=== PATIENT | female | born 1955 | race Caucasian/White ===

== ENCOUNTER → 2017-04-19 | Outpatient (CLI) | payer BC ==
[2017-03-29 14:41] VITALS: BP 133/61
--- NOTE | 2017-04-19 11:06 | RAD ---
Examination: Lumbar spine, five views History: Back pain Findings: Normal appearance of vertebrae, disc spaces, sacroiliac joints. Alignment of segments is an atomic. No bone destruction or fracture is seen. Impression: No acute or significant lumbar spine abnormality identified. Reported By:
== END ==
LOC: RAD 10:39
PROVIDERS: ATTEND Nurse Practitioner Family
DX: M54.89 Other dorsalgia (principal)
CPT/HCPCS: 72110

== ENCOUNTER 2017-05-19 17:05 | Emergency (ER) | payer BC ==
[2017-05-19 17:13] VITALS: BMI 33.9
--- NOTE | 2017-05-19 19:53 | DR.GENAD ---
HPI - PCP Primary Care Physician: hector - Complaint/Symptoms Chief Complaint Doctors Comments: Patient denies vomiting or diarrhea. Denies fever. Chief Complaint:: pt stated she has been coughing and has been short of breath for about a week. - Source History Provided: Patient - Mode of Arrival Mode of Arrival: Ambulatory - Timing Onset of Chief Complaint: 05/12/17 PMH - PMH Past Medical History: Yes Past Medical History: Hypertension, Hypothyroidism Past Surgical History: Yes Surgical History: Ortho Surgery, Thyroidectomy - Family History History of Family Medical Conditions: Yes Family Medical History: Coronary Artery Disease - Social History Does patient currently use any type of tobacco product: No Have you used tobacco products in the last 12 months: No Type of Tobacco Use: None Does any household member use tobacco: No Alcohol Use: None Do you use any recreational Drugs:: No Lives With: Family Lives Where: Home - infectious screening In the last 2 months have you had wt loss of >10#?: NO Have you had fever, night sweats or hemotysis?: No Have you traveled outside the country in the last 6 months?: No Isolation: Standard ROS - Review of Systems Eyes: No Symptoms Reported ENTM: No Symptoms Reported Respiratoy: No Symptoms Reported Cardiovascular: No Symptoms Reported Gastrointestinal/Abdominal: No Symptoms Reported Genitourinary: No Symptoms Reported Neurological: No Symptoms Reported Musculoskeletal: No Symptoms Reported Integumentary: No Symptoms Reported Hematologic/Lymphatic: No Symptoms Reported Endocrine: No Symptoms Reported Psychiatric: No Symptoms Reported All Other Systems: Reviewed and Negative PE - Vital Signs Vitals: Temperature 98.9 F Pulse Rate 89 Respiratory Rate 18 Blood Pressure [Right Arm] 122/60 Blood Pressure 130/80 O2 Sat by Pulse Oximetry 97 - General General Appearance: Alert, In No Apparent Distress - Head Head Exam: Normal Inspection, Atraumatic - Eyes Eye exam: Normal Appearance, PERRL, EOMI - ENT ENT Exam: Normal Exam External Ear Exam: Normal External Inspection TM/Canal Exam: Bilateral Normal Nose Exam: Normal Nose Exam Mouth Exam: Normal Inspection Throat Exam: Normal Inspection - Neck Neck Exam: Normal Inspection - Chest Chest Inspection: Normal Inspection, Symmetric Chest Wall Rise - Respiratory Respiratory Exam: Normal Lung Sounds Bilat Respiratory Exam: Bilateral Clear to Auscultation - Cardiovascular Cardiovascular Exam: Regular Rate, Normal Rhythm - Abdominal Exam Abdominal Exam: Normal Inspection, Normal Bowel Sounds Abdominal Tenderness: negative: RUQ, RLQ, LUQ, LLQ, Epigastrium, Suprapubic, Diffuse, Mild, Moderate, Severe, Other - Extremities Extremities Exam: Normal Inspection, Full ROM - Back Back Exam: Normal Inspection, Full ROM - Neurologic Neurological Exam: Alert, Oriented X3, CN II-XII Intact - Psychiatric Psychiatric Exam: Normal Affect, Normal Mood - Skin Skin Exam: Warm, Dry, Intact ROR - Labs Reviewed Laboratory: Influenza Type A (PCR) Negative (NEGATIVE) 05/19/17 19:11 Influenza Type B (PCR) Negative (NEGATIVE) 05/19/17 19:11 Streptococcus Screen Negative (NEGATIVE) 05/19/17 19:11 - Diagnosis Discharge Problem: Upper respiratory infection Qualifiers: URI type: unspecified viral URI Qualified Code(s): J06.9 - Acute upper respiratory infection, unspecified - Discharge Plan Condition: Stable - Follow ups/Referrals Follow ups/Referrals: AMANDA GUERRERO [Primary Care Provider] - 3 days - Instructions
[2017-05-19] MEDS ORDERED: BENADRYL ELIXIR 12.5 MG/5 ML PO ONE (19:54)
[2017-05-19] MEDS ORDERED: TUSSIONEX PENNKINETIC SUSP PO ONE (19:56)
[2017-05-19] MEDS ORDERED: BENADRYL ELIXIR 12.5 MG/5 ML ONE (19:58)
[2017-05-19] MEDS ORDERED: TUSSIONEX PENNKINETIC SUSP ONE (20:16)
[2017-05-19 20:48] VITALS: BP 125/77
== END 2017-05-19 20:35 | disposition home or self-care (01) ==
LOC: ER 17:11
DX: J06.9 Acute upper respiratory infection, unspecified (principal)
CPT/HCPCS: 87070; 87502; 87880; 99282

== ENCOUNTER 2018-02-21 05:03 | Inpatient (IN) ==
[2018-02-21] MEDS ORDERED: DEMEROL INJ IVP ONE (05:38)
[2018-02-21] MEDS ORDERED: ZOFRAN INJ 4 MG VIAL IVP ONE ×2 (05:38→07:20)
--- NOTE | 2018-02-21 05:49 | ED.ABDFE ---
HPI Time Seen Time Seen by Provider: 02/21/18 05:35 PCP Primary Care Physician: CESAR HPI Comment HPI Comment: PAIN STARTED AFTER EATING PIZZA. SIMILAR PAIN OFF AND ON FOR SEVERAL MONTHS RELATED TO FOOD. HAD NAUSEA AND VOMITING WITH PAIN. IT IS A SHARP PAIN. Complaint Doctors Chief Complaint Comments: MID ABDOMINAL PAIN RADIATING TO EPIGATRIC AREA SINCE 18:00 PM YESTERDAY. Chief Complaint:: O/S 1800 ON [id number] WITH ABD PAIN THAT RADIATES TO EPIGASTRIC WITH NAUSEA/VOMITING AFTER EATING PIZZA. STATES, "FOR SOMETIME NOW , EVERY TIME I EAT, THIS HAPPENS AND IT USUALLY JUST GOES RIGHT THROUGH ME." Self Treatment fo Chief Complaint: NONE Reviewed Nurses Notes Review: Yes Source History Provided: Patient Mode of arrival Mode of Arrival: Ambulatory Timing Onset of Chief Complaint: 02/20/18 Came on: Suddenly Duration Since Onset: Constant Duration: Hours Location Location: Periumbilical Severity Severity: Severe Quality Quality: Sharp Context History of: None Modifying factors Worsening Factors: Food Improving Factors: Nothing Associated signs and symptoms Associated Signs and Symptoms: Nausea and Vomiting PMH PMH Past Medical History: Yes Past Medical History: Angina, Dyslipidemia, GERD, Hypertension and Hypothyroidism Past Surgical History: Yes Surgical History: Ortho Surgery and Thyroidectomy Past Surgical History Comment: CATARACT SURGERY TIMES 2, RT KNEE SURGERY TIMES 2, PARTIAL THYROIDECTOMY DUE TO THYROID CANCER. Family History History of Family Medical Conditions: Yes Family Medical History: Coronary Artery Disease Social History Does patient currently use any type of tobacco product: No Have you used tobacco products in the last 12 months: No Type of Tobacco Use: None Does any household member use tobacco: No Alcohol Use: None Do you use any recreational Drugs:: No Lives Where: Home infectious screening Have you traveled outside the country in the last 6 months?: No Isolation: Standard ROS Review of Systems Eyes: No Symptoms Reported ENTM: No Symptoms Reported Respiratoy: No Symptoms Reported Cardiovascular: No Symptoms Reported Gastrointestinal/Abdominal: Abdominal Pain, Nausea and Vomiting Genitourinary: No Symptoms Reported Neurological: No Symptoms Reported Musculoskeletal: No Symptoms Reported Integumentary: No Symptoms Reported Hematologic/Lymphatic: No Symptoms Reported Endocrine: No Symptoms Reported Psychiatric: No Symptoms Reported All Other Systems: Reviewed and Negative PE Vital Signs Vitals: Temperature 97.4 F Pulse Rate 83 Respiratory Rate 18 Blood Pressure [Right Arm] 125/77 Blood Pressure 136/62 O2 Sat by Pulse Oximetry 96 General Limitations: No Limitations General Appearance: Alert and In No Apparent Distress Head Head Exam: Normal Inspection and Atraumatic Eyes Eye exam: Normal Appearance and PERRL ENT ENT Exam: Normal Exam, Normal Oropharynx, Normal External Ear Exam and TM's Normal Bilaterally Neck Neck Exam: Normal Inspection and Trachea Midline Chest Chest Inspection: Symmetric Chest Wall Rise Respiratory Respiratory Exam: Normal Lung Sounds Bilat Respiratory Exam: Bilateral: Clear to Auscultation Cardiovascular Cardiovascular Exam: Regular Rate and Normal Rhythm Abdominal Exam Abdominal Exam: Normal Inspection, Normal Bowel Sounds, Soft and Tenderness Abdominal Tenderness: Diffuse and Severe Rectal Rectal Exam: Deferred Back Back Exam: Normal Inspection Extremeties Extremities Exam: Normal Inspection External Exam: Female: Deferred : Speculum Exam (Female): Deferred : Bimanual Exam (female): Deferred Neurologic Neurological Exam: Alert, Oriented X3 and CN II-XII Intact; negative Motor Sensory Deficit Psychiatric Psychiatric Exam: Normal Affect and Normal Mood Skin Skin Exam: Erythema MDM Differential Diagnosis Differential Diagnosis- Considerations may include:: Appendicitis, Bowel Obstruction, Cholcystitis, Cholelethiasis, Constipation, Diverticular disease, Gastritus/PUD, Pancreatitis, Urinary tract infection and Urolithiasis COURSE Treatment Treatment: SEE ORDERS. Education/Counseling Education/Counseling: Patient Educated On: Diagnosis
[2018-02-21] MEDS ORDERED: ZOFRAN INJ 4 MG VIAL ONE ×3 (05:55→09:22)
[2018-02-21] MEDS ORDERED: MORPHINE SULFATE INJ 4 MG IVP ONE (05:57)
[2018-02-21 05:58] LABS: BASOPHILS # (AUTO) 0.1 X10^3/uL (0.0-0.1); BASOPHILS % (AUTO) 0.7 % (0.2-1.0); EOSINOPHILS # (AUTO) 1.1 x10^3/uL (0.0-0.2); HEMATOCRIT 44.1 % (36.0-47.0); HEMOGLOBIN 15.1 g/dL (12.0-16.0); LYMPHOCYTES # (AUTO) 2.4 X10^3/uL (1.3-2.9); LYMPHOCYTES % (AUTO) 20.1 % (21.0-51.0); MEAN CORPUSCULAR HEMOGLOBIN 30.5 pg (27.0-34.0); MEAN CORPUSCULAR HGB CONC 34.2 g/dL (33.0-35.0); MEAN CORPUSCULAR VOLUME 89.2 fL (80.0-100.0); MEAN PLATELET VOLUME 7.6 fL (7.4-11.0); MONOCYTES # (AUTO) 0.4 x10^3/uL (0.3-0.8); MONOCYTES % (AUTO) 3.7 % (0.0-13.0); NEUTROPHILS # (AUTO) 7.8 x10^3/uL (2.2-4.8); NEUTROPHILS % (AUTO) 66.5 % (42.0-75.0); PLATELET COUNT 331 X10^3/uL (150.0-450.0); RED BLOOD COUNT 4.94 X10^6/uL (3.5-5.4); RED CELL DISTRIBUTION WIDTH 13.8 % (11.6-16.5); WHITE BLOOD COUNT 11.7 X10^3/uL (3.6-10.0)
[2018-02-21] MEDS ORDERED: MORPHINE SULFATE INJ 4 MG ONE ×2 (06:00→09:22)
[2018-02-21] MEDS ORDERED: NS 1000 ML 1,000 ML IV SCH (06:00)
[2018-02-21 06:13] LABS: ALANINE AMINOTRANSFERASE 21 Units/L (12-78); ALBUMIN 3.9 g/dL (3.4-5.0); ALKALINE PHOSPHATASE 97 Units/L (46-116); AMYLASE 44 Units/L (25-115); ASPARTATE AMINO TRANSFERASE 24 Units/L (15-37); BLOOD UREA NITROGEN 14 mg/dL (7-18); CHLORIDE 106 mmol/L (98-107); COR NA(FOR HYPERGLY) 144 mmol/L (136-145); CREATININE 0.86 mg/dL (0.55-1.02); LIPASE 204 Units/L (73-393); SODIUM 143 mmol/L (136-145); TOTAL PROTEIN 7.7 g/dL (6.4-8.2); eGFR NON BLACK RACES > 60 (>60)
--- NOTE | 2018-02-21 07:51 | CT ---
HISTORY: Abdominal pain, nausea, vomiting Study: CT abdomen pelvis without contrast Comparison: None Technique: Axial noncontrast images with coronal and sagittal reformats. Dose reduction procedures we re used with mA/kv adjusted for body size. This examination is limited due to the lack of intravenous and oral contrast. The examination was performed in this manner at the sole discretion of the orderi ng caregiver and without input requested from or given by Radiology. Findings: The lung bases are clear. There is a hiatal hernia present. The liver, spleen, adrenal glands, and pa ncreas are within normal limits only to the limitations of an unenhanced examination. No opaque stone s are visible within the gallbladder. The kidneys are unobstructed and without stones. No ureteral ca lculi are identified. The appendix is normal. The abdominal aorta is normal. No intraperitoneal or re troperitoneal lymphadenopathy of significance is identified. There are no findings suggestive diverti culitis or colitis. There are, however, multiple air and fluid-filled dilated loops of jejunum and il eum. There is transition to collapsed small bowel in the right lower quadrant. This is indicative of a high-grade small bowel obstruction. The precise etiology is not obvious. It could be on the basis o f adhesion, internal herniation, or nonvisualized mural or intraluminal small bowel abnormality. Exam ination of the pelvis demonstrated no evidence for pelvic masses, significant pelvic fluid, or pelvic lymphadenopathy. No bladder abnormality is identified. No lytic or blastic skeletal lesions of signi ficance are identified. IMPRESSION: Findings consistent with a high-grade likely mid ileal small bowel obstruction the etiology of which is not obvious on this examination. Hiatal hernia Reported By:
--- NOTE | 2018-02-21 08:46 | ED.ABDFE ---
HPI Time Seen Time Seen by Provider: 02/21/18 05:35 PCP Primary Care Physician: CESAR HPI Comment HPI Comment: PATIENT PRESENTED WITH SHARP MID ABDOMINAL PAIN ASSOCIATED WITH NAUSEA AND VOMITING. PAIN STARTED AFFTER PATIENT ATE PIZZA.PAIN IS SHARP AND RADIATES TO EPIGASTRIC AREA. HAD BOWEL MOVEMENT YESTERDAY. NO FEVER. SIMILAR PAIN RELATED TO FOOD FOR SEVERAL MONTHS. THIS PAIN IS WORSE. Complaint Doctors Chief Complaint Comments: ABDOMINAL PAIN, N/V FOR SEVERAL HOURS. Chief Complaint:: O/S 1800 ON [id number] WITH ABD PAIN THAT RADIATES TO EPIGASTRIC WITH NAUSEA/VOMITING AFTER EATING PIZZA. STATES, "FOR SOMETIME NOW , EVERY TIME I EAT, THIS HAPPENS AND IT USUALLY JUST GOES RIGHT THROUGH ME." Self Treatment fo Chief Complaint: NONE Reviewed Nurses Notes Review: Yes Source History Provided: Patient Mode of arrival Mode of Arrival: Ambulatory Timing Onset of Chief Complaint: 02/20/18 Came on: Suddenly Duration Since Onset: Constant Duration: Hours Location Location: Epigastric and Periumbilical Severity Severity: Severe Quality Quality: Sharp Context History of: None Modifying factors Worsening Factors: Food Improving Factors: Nothing Associated signs and symptoms Associated Signs and Symptoms: Nausea and Vomiting PMH PMH Past Medical History: Yes Past Medical History: Angina, Dyslipidemia, GERD, Hypertension and Hypothy roidism Past Surgical History: Yes Surgical History: Ortho Surgery and Thyroidectomy Past Surgical History Comment: CATARACT SURGERY TIMES 2, RT KNEE SURGERY TIMES 2, PARTIAL THYROIDECTOMY DUE TO THYROID CANCER. Family History History of Family Medical Conditions: Yes Family Medical History: Coronary Artery Disease Social History Does patient currently use any type of tobacco product: No Have you used tobacco products in the last 12 months: No Type of Tobacco Use: None Does any household member use tobacco: No Alcohol Use: None Do you use any recreational Drugs:: No Lives Where: Home infectious screening Have you traveled outside the country in the last 6 months?: No Isolation: Standard ROS Review of Systems Constitutional: No Symptoms Reported Eyes: No Symptoms Reported ENTM: No Symptoms Reported Respiratoy: No Symptoms Reported Cardiovascular: No Symptoms Reported Gastrointestinal/Abdominal: Abdominal Pain, Nausea and Vomiting Genitourinary: No Symptoms Reported Neurological: No Symptoms Reported Musculoskeletal: No Symptoms Reported Integumentary: Dryness Hematologic/Lymphatic: No Symptoms Reported Endocrine: No Symptoms Reported Psychiatric: No Symptoms Reported All Other Systems: Reviewed and Negative PE Vital Signs Vitals: Temperature 98.0 F Pulse Rate [Left Brachial] 74 Pulse Rate 83 Respiratory Rate 20 Blood Pressure [Left Arm] 130/60 Blood Pressure [Right Arm] 125/77 Blood Pressure 136/62 O2 Sat by Pulse Oximetry 98 General Limitations: No Limitations General Appearance: Alert Head Head Exam: Normal Inspection Eyes Eye exam: Normal Appearance and PERRL ENT ENT Exam: Normal Exam, Normal Oropharynx, Normal External Ear Exam, Mucous Memb ranes Dry and TM's Normal Bilaterally Neck Neck Exam: Normal Inspection and Trachea Midline Chest Chest Inspection: Normal Inspection and Symmetric Chest Wall Rise Respiratory Respiratory Exam: Normal Lung Sounds Bilat Respiratory Exam: Bilateral: Clear to Auscultation Cardiovascular Cardiovascular Exam: Regular Rate and Normal Rhythm Abdominal Exam Abdominal Exam: Normal Bowel Sounds, Soft and Tenderness Abdominal Tenderness: Diffuse and Moderate Rectal Rectal Exam: Deferred Back Back Exam: Normal Inspection Extremeties Extremities Exam: Normal Inspection External Exam: Female: Deferred : Speculum Exam (Female): Deferred : Bimanual Exam (female): Deferred Neurologic Neurological Exam: Alert, Oriented X3 and Motor Sensory Deficit Psychiatric Psychiatric Exam: Normal Affect and Normal Mood Skin Skin Exam: Dry MDM Differential Diagnosis Differential Diagnosis- Considerations may include:: Appendicitis, Bowel Obstruction, Cholcystitis, Cholelethiasis, Constipation, Diverticular disease, Gastritus/PUD, Pancreatitis, Urinary tract infection and Urolithiasis COURSE Treatment Treatment: SEE ORDERS. Consultation Consultation Comments: DISCUSS PATIENT WITH DR. GUERRERO. HE WILL ADMIT PATIENT. Education/Counseling Education/Counseling: Patient Educated On: Diagnosis ROR Labs Reviewed Laboratory Results Reviewed?: Yes Result Diagrams: 02/21/18 05:46 02/21/18 05:46 Laboratory: WBC 11.7 X10^3/uL (3.6-10.0) H 02/21/18 05:46 RBC 4.94 X10^6/uL (3.5-5.4) 02/21/18 05:46 Hgb 15.1 g/dL (12.0-16.0) 02/21/18 05:46 Hct 44.1 % (36.0-47.0) 02/21/18 05:46 MCV 89.2 fL (80.0-100.0) 02/21/18 05:46 MCH 30.5 pg (27.0-34.0) 02/21/18 05:46 MCHC 34.2 g/dL (33.0-35.0) 02/21/18 05:46 RDW 13.8 % (11.6-16.5) 02/21/18 05:46 Plt Count 331 X10^3/uL (150.0-450.0) 02/21/18 05:46 MPV 7.6 fL (7.4-11.0) 02/21/18 05:46 Neut % (Auto) 66.5 % (42.0-75.0) 02/21/18 05:46 Lymph % (Auto) 20.1 % (21.0-51.0) L 02/21/18 05:46 [place] % (Auto) 3.7 % (0.0-13.0) 02/21/18 05:46 Eos % (Auto) 9.0 % (0.9-2.9) H 02/21/18 05:46 Baso % (Auto) 0.7 % (0.2-1.0) 02/21/18 05:46 Neut # (Auto) 7.8 x10^3/uL (2.2-4.8) H 02/21/18 05:46 Lymph # (Auto) 2.4 X10^3/uL (1.3-2.9) 02/21/18 05:46 [place] # (Auto) 0.4 x10^3/uL (0.3-0.8) 02/21/18 05:46 Eos # (Auto) 1.1 x10^3/uL (0.0-0.2) H 02/21/18 05:46 Baso # (Auto) 0.1 X10^3/uL (0.0-0.1) 02/21/18 05:46 Absolute Nucleated RBC 0.0 /100WBC 02/21/18 05:46 Sodium 143 mmol/L (136-145) 02/21/18 05:46 Corrected Sodium 144 mmol/L (136-145) 02/21/18 05:46 Potassium 4.1 mmol/L (3.5-5.1) 02/21/18 05:46 Chloride 106 mmol/L (98-107) 02/21/18 05:46 Carbon Dioxide 28.0 mmol/L (21-32) 02/21/18 05:46 BUN 14 mg/dL (7-18) 02/21/18 05:46 Creatinine 0.86 mg/dL (0.55-1.02) 02/21/18 05:46 Est GFR (MDRD) Af Amer > 60 (>60) 02/21/18 05:46 Est GFR (MDRD) Non-Af > 60 (>60) 02/21/18 05:46 Glucose 128 mg/dL (65-99) H 02/21/18 05:46 POC Glucose (mg/dL) 177 mg/dL (65-99) H 02/21/18 11:58 Calcium 9.0 mg/dL (8.5-10.1) 02/21/18 05:46 Corrected Calcium TNP 02/21/18 05:46 Total Bilirubin 0.40 mg/dL (0.2-1.0) 02/21/18 05:46 AST 24 Units/L (15-37) 02/21/18 05:46 ALT 21 Units/L (12-78) 02/21/18 05:46 Alkaline Phosphatase 97 Units/L (46-116) 02/21/18 05:46 Total Protein 7.7 g/dL (6.4-8.2) 02/21/18 05:46 Albumin 3.9 g/dL (3.4-5.0) 02/21/18 05:46 Globulin 3.8 g/dL (2.5-4.5) 02/21/18 05:46 Albumin/Globulin Ratio 1.0 Ratio (1.1-2.1) L 02/21/18 05:46 Amylase 44 Units/L (25-115) 02/21/18 05:46 Lipase 204 Units/L (73-393) 02/21/18 05:46 Specimen Type Clean catch urine 02/21/18 16:47 Urine Color Yellow (YELLOW) 02/21/18 16:47 Urine Appearance Clear (CLEAR) 02/21/18 16:47 Urine pH 6.0 (5.0 - 8.0) 02/21/18 16:47 Ur Specific [place] 1.025 (1.000-1.030) 02/21/18 16:47 Urine Protein 1+ (NEGATIVE) 02/21/18 16:47 Urine Glucose (UA) Negative (NEGATIVE) 02/21/18 16:47 Urine Ketones Negative (NEGATIVE) 02/21/18 16:47 Urine Occult Blood Negative (NEGATIVE) 02/21/18 16:47 Urine Nitrite Negative (NEGATIVE) 02/21/18 16:47 Urine Bilirubin Negative (NEGATIVE) 02/21/18 16:47 Urine Urobilinogen Normal (NORMAL) 02/21/18 16:47 Ur Leukocyte Esterase Negative (NEGATIVE) 02/21/18 16:47 Urine RBC 0-2 /HPF (NONE SEEN) 02/21/18 16:47 Urine WBC 0-2 /HPF (NONE SEEN) 02/21/18 16:47 Ur Squamous Epith Cells Numerous /HPF (NEGATIVE) 02/21/18 16:47 Urine Bacteria Trace /HPF (NEGATIVE) 02/21/18 16:47 Urine Mucus Few /HPF (NEGATIVE) 02/21/18 16:47 Ur Culture Indicated? No/not indicated 02/21/18 16:47 XRAY XRAY Interpreted by: Radiologist XRAY Findings: REPORT DISCUSS WITH PATIENT. Diagnosis Discharge Problem: Bowel obstruction
--- NOTE | 2018-02-21 10:00 | RAD ---
Examination: KUB History: NG placement Findings: Nasogastric tube is coiled in the proximal gastric fundus just below the left diaphragm. Impression: NG tube position as noted. Reported By:
[2018-02-21] MEDS ORDERED: RESTORIL CAP 15 MG PO PRN (11:09)
[2018-02-21] MEDS ORDERED: ZOFRAN INJ 4 MG VIAL IVP PRN (11:09)
[2018-02-21] MEDS ORDERED: LOPRESSOR TAB 25 MG PO SCH (11:09)
[2018-02-21] MEDS: CHLORASEPTIC SPRAY MT PRN ×2 (11:36→21:16)
[2018-02-21] MEDS: TAMBOCOR PO SCH ×2 (11:36→21:14)
[2018-02-21] MEDS: SYNTHROID 50 mcg TAB PO SCH (11:36)
[2018-02-21] MEDS: NS 1000 ML 1,000 ML IV SCH ×2 (11:36→18:18)
[2018-02-21 11:53] VITALS: BMI 35.3
[2018-02-21] MEDS: MORPHINE SULFATE INJ 2 MG INJ IVP PRN ×2 (13:47→18:17)
--- NOTE | 2018-02-21 15:06 | DR.H&P ---
H&P - History & Physical for Day of: H&P Date: 02/21/18 - Chief Complaint Chief Complaint: ABDOMINAL PAIN - History of Present Illness History of Present Illness: 62 WF ER ADMISSION AFTER PRESENTING WITH CO SUDDEN ONSET OF MID TO LOWER ABDOMINAL PAIN WITH N/V LAST PM. PT STATES SHE HAD NORMAL BM SATURDAY, ATE PIZZA ABOUT 6PM ON SATURDAY, THEN HAD ONSET OF INTRACTABLE PAIN. PT DENIES ANY HX OF ABDOMINAL SURGERIES, NO FEVER OR KNOWN EXPOSURE TO VIRAL ILLNESS. PT HAD CT ABD PELVIS IN ER WITH POSSIBLE SHERI VS ILEUS. PT HAS HX OF THYROID DISEASE, AFIB S/P ABLATION AND HTN. PT HAS NG TUBE AT LIS. ADMITTED FOR TREATMENT AND EVALUATION OF ACUTE ABDOMINAL PAIN. - Past Medical History Past Medical History: Angina, Hypertension, Dyslipidemia, Hypothyroidism, GERD Additional Medical History: cardiac dysrhythmias; undefined - presumed paroxysmal SVT - Past Surgical History Surgical History: Ortho Surgery, Other - Family History Family Medical History: Diabetes Mellitus, Heart Failure - Social History Does patient currently use any type of tobacco product: No Have you used tobacco products in the last 12 months: No Type of Tobacco Use: None Does any household member use tobacco: No Alcohol Use: None Drug Use: None - Medications Home Medications: cinnamon Allergy (Verified 02/21/18 05:19) codeine Allergy (Verified 02/21/18 05:19) CONTINUE taking the following medications flecainide 100 mg PO BID 02/21/18 [History] levothyroxine 50 mcg PO DAILY 02/21/18 [History] metoprolol tartrate 25 mg PO BID 02/21/18 [History] nitroglycerin 0.4 mg SUBLINGUAL Q5-15M PRN 02/21/18 [History] simvastatin 20 mg PO HS 02/21/18 [History] temazepam 15 mg PO HS PRN 02/21/18 [History] - Review of Systems Constitutional: Chills, Malaise Eyes: No Symptoms Reported ENT: No Symptoms Reported Respiratory: No Symptoms Reported Cardiovascular: No Symptoms Reported Gastrointestinal: Nausea, Vomiting, Abdominal Pain Genitourinary: No Symptoms Reported Musculoskeletal: No Symptoms Reported Skin: No Symptoms Reported Neurological: No Symptoms Reported - Physical Exam Vital Signs: Temperature 98.2 F Pulse Rate [Left Brachial] 73 Pulse Rate 83 Respiratory Rate 18 Blood Pressure [Left Arm] 117/56 Blood Pressure [Right Arm] 125/77 Blood Pressure 136/62 O2 Sat by Pulse Oximetry 98 Oriented: Normal Eyes: Normal Ear: Normal Nose: Normal Throat: Normal Respiratory: Clear Throughout Cardiovascular: Normal : Normal Auscultation: Bowel Sounds: Decreased Palpation: Normal Tenderness: Diffuse, Moderate Skin: Normal Musculoskeletal: Normal Psychiatric: Anxiety Affect: Anxious Speech Pattern: Clear, Appropriate - Assessment/Plan (1) Bowel obstruction Status: Acute Plan: ADMIT, NPO, NG TUBE AT LIS. AM KUB, PAIN AND NAUSEA CONTORL. IV PROTONIX, MONITOR (2) Hypothyroid Status: Acute (3) Hypertension Status: Chronic - Allergies Allergies/Adverse Reactions: Allergies Allergy/AdvReac Type Severity Reaction Status Date / Time cinnamon Allergy Verified 02/21/18 05:19 codeine Allergy Verified 02/21/18 05:19
[2018-02-21 16:59] LABS: BILIRUBIN,URINE NEGATIVE (NEGATIVE); BLOOD/HEMOGLOBIN,URINE NEGATIVE (NEGATIVE); GLUCOSE, URINE NEGATIVE (NEGATIVE); KETONES,URINE NEGATIVE (NEGATIVE); LEUKOCYTE ESTERASE ,URINE NEGATIVE (NEGATIVE); NITRITES,URINE NEGATIVE (NEGATIVE); PROTEIN,URINE 1+ (NEGATIVE); UROBILINOGEN,URINE NORMAL (NORMAL)
[2018-02-21 17:25] LABS: COLOR,URINE YELLOW (YELLOW)
[2018-02-21 17:26] LABS: APPEARANCE,URINE CLEAR (CLEAR); BACTERIA,URINE TRACE /HPF (NEGATIVE); MUCUS,URINE FEW /HPF (NEGATIVE); RBC,URINE 0-2 /HPF (NONE SEEN); SQUAMOUS EPITHELIAL CELL,UR NUMEROUS /HPF (NEGATIVE)
[2018-02-21] MEDS: LOPRESSOR TAB 25 MG PO SCH (21:16)
[2018-02-22] MEDS: MORPHINE SULFATE INJ 2 MG INJ IVP PRN ×3 (04:11→17:32)
[2018-02-22 05:58] LABS: BASOPHILS % (AUTO) 0.4 % (0.2-1.0); EOSINOPHILS # (AUTO) 0.9 x10^3/uL (0.0-0.2); EOSINOPHILS % (AUTO) 10.3 % (0.9-2.9); HEMATOCRIT 38.9 % (36.0-47.0); HEMOGLOBIN 13.3 g/dL (12.0-16.0); LYMPHOCYTES % (AUTO) 22.2 % (21.0-51.0); MEAN CORPUSCULAR HEMOGLOBIN 30.7 pg (27.0-34.0); MEAN CORPUSCULAR HGB CONC 34.1 g/dL (33.0-35.0); MEAN PLATELET VOLUME 7.9 fL (7.4-11.0); MONOCYTES # (AUTO) 0.4 x10^3/uL (0.3-0.8); MONOCYTES % (AUTO) 4.6 % (0.0-13.0); NEUTROPHILS # (AUTO) 5.7 x10^3/uL (2.2-4.8); NEUTROPHILS % (AUTO) 62.5 % (42.0-75.0); PLATELET COUNT 282 X10^3/uL (150.0-450.0); RED BLOOD COUNT 4.33 X10^6/uL (3.5-5.4); WHITE BLOOD COUNT 9.2 X10^3/uL (3.6-10.0)
[2018-02-22 06:16] LABS: ALANINE AMINOTRANSFERASE 15 Units/L (12-78); ALKALINE PHOSPHATASE 78 Units/L (46-116); AMYLASE 36 Units/L (25-115); ASPARTATE AMINO TRANSFERASE 20 Units/L (15-37); BLOOD UREA NITROGEN 13 mg/dL (7-18); CALCIUM 7.3 mg/dL (8.5-10.1); CARBON DIOXIDE 25.7 mmol/L (21-32); CHLORIDE 107 mmol/L (98-107); COR CA(FOR HYPOALB) 8.1 mg/dL (8.5-10.1); CREATININE 0.75 mg/dL (0.55-1.02); LIPASE 159 Units/L (73-393); SODIUM 140 mmol/L (136-145); TOTAL PROTEIN 6.3 g/dL (6.4-8.2); eGFR NON BLACK RACES > 60 (>60)
[2018-02-22] MEDS: TAMBOCOR PO SCH ×2 (08:29→21:45)
[2018-02-22] MEDS: LOPRESSOR TAB 25 MG PO SCH ×2 (08:29→21:45)
[2018-02-22] MEDS: SYNTHROID 50 mcg TAB PO SCH (08:29)
[2018-02-22] MEDS: NS 1000 ML 1,000 ML IV SCH ×3 (08:41→17:24)
--- NOTE | 2018-02-22 11:47 | RAD ---
Examination: Portable KUB History: SBO Comparison 02/21/2018 Findings: There is slight intestinal distention of scattered segments of small bowel in the central a bdomen. Gas is present in the colon. There is no evidence for mass formation or abnormal calcificatio n. Previously described nasogastric tube is not identified although the extreme upper abdomen is not included on this portable image. Impression: Intestinal gas pattern described consistent with ileus or partial/early SBO. NG tube not identified; see above description. Reported By:
[2018-02-22] MEDS ORDERED: TORADOL 30 MG VIAL IVP ONE (11:54)
--- NOTE | 2018-02-22 12:24 | PCM.PROG ---
Progress Note - Progress Note for Day of Date of Exam: 02/22/18 - Subjective Subjective: 62 WF ER ADMISSION ON 02/21 WITH POSSIBLE SBO VS ILEUS. PT HAS NG TUBE AT LIS MINIMAL CLEAR STOMACH CONTENTS. PT CO CHILDERS AND PAIN FROM NG TUBE IRRITATION. PT REPORTS IMPROVING ABDOMINAL PAIN, HAS PASSED MINIMAL GAS, NAUSEA BETTER, "MORE FROM TUBE IN MY THROAT". PT HAS MID AND EPIGASTRIC TENDERNESS AND RUQ TENDERNESS ON EXAM. REPEAT KUB ORDERED. PT WBC 9.2 , BUN 13, CREAT 0.75, AMYLASE AND LIPASE NORMAL, AFEBRILE, LACTIC ACID ORDERED THIS AM, GALLBLADDER US. CONTINUE NPO,PAIN AND NAUSEA CONTROL - Past Medical Family Social History Past Med/Fam/Surg Hx: No changes since H&P Allergies: Allergies cinnamon Allergy (Verified 02/21/18 05:19) codeine Allergy (Verified 02/21/18 05:19) - Review of Systems ROS: No change since H&P - Vital Signs and I&O's Vital Signs: Temperature 98.1 F Pulse Rate [Left Brachial] 80 Pulse Rate 83 Respiratory Rate 18 Blood Pressure [Left Arm] 121/55 Blood Pressure [Right Arm] 125/77 Blood Pressure 136/62 O2 Sat by Pulse Oximetry 96 Intake and Output: Intake & Output 02/20/18 02/21/18 02/22/18 02/23/18 11:59 11:59 11:59 11:59 Intake Total 1188 / 1188 Output Total 100 / 100 Balance 1088 / 1088 - Physical Exam Oriented: Normal Eyes: Normal Ear: Normal Nose: Normal Throat: Normal Respiratory: Normal Cardiovascular: Normal : Normal Auscultation: Bowel Sounds: Decreased Tenderness: RUQ, Epigastric, Periumbilical, Moderate Skin: Normal Musculoskeletal: Normal Psychiatric: Anxiety Affect: Anxious Speech Pattern: Clear, Appropriate - Laboratory and Diagnostics Result Diagrams: 02/22/18 04:55 02/22/18 04:55 Labs: Laboratory WBC 9.2 X10^3/uL (3.6-10.0) 02/22/18 04:55 RBC 4.33 X10^6/uL (3.5-5.4) 02/22/18 04:55 Hgb 13.3 g/dL (12.0-16.0) 02/22/18 04:55 Hct 38.9 % (36.0-47.0) 02/22/18 04:55 MCV 90.0 fL (80.0-100.0) 02/22/18 04:55 MCH 30.7 pg (27.0-34.0) 02/22/18 04:55 MCHC 34.1 g/dL (33.0-35.0) 02/22/18 04:55 RDW 14.0 % (11.6-16.5) 02/22/18 04:55 Plt Count 282 X10^3/uL (150.0-450.0) 02/22/18 04:55 MPV 7.9 fL (7.4-11.0) 02/22/18 04:55 Neut % (Auto) 62.5 % (42.0-75.0) 02/22/18 04:55 Lymph % (Auto) 22.2 % (21.0-51.0) 02/22/18 04:55 [place] % (Auto) 4.6 % (0.0-13.0) 02/22/18 04:55 Eos % (Auto) 10.3 % (0.9-2.9) H 02/22/18 04:55 Baso % (Auto) 0.4 % (0.2-1.0) 02/22/18 04:55 Neut # (Auto) 5.7 x10^3/uL (2.2-4.8) H 02/22/18 04:55 Lymph # (Auto) 2.0 X10^3/uL (1.3-2.9) 02/22/18 04:55 [place] # (Auto) 0.4 x10^3/uL (0.3-0.8) 02/22/18 04:55 Eos # (Auto) 0.9 x10^3/uL (0.0-0.2) H 02/22/18 04:55 Baso # (Auto) 0.0 X10^3/uL (0.0-0.1) 02/22/18 04:55 Absolute Nucleated RBC 0.2 /100WBC 02/22/18 04:55 Sodium 140 mmol/L (136-145) 02/22/18 04:55 Corrected Sodium TNP 02/22/18 04:55 Potassium 3.7 mmol/L (3.5-5.1) 02/22/18 04:55 Chloride 107 mmol/L (98-107) 02/22/18 04:55 Carbon Dioxide 25.7 mmol/L (21-32) 02/22/18 04:55 BUN 13 mg/dL (7-18) 02/22/18 04:55 Creatinine 0.75 mg/dL (0.55-1.02) 02/22/18 04:55 Est GFR (MDRD) Af Amer > 60 (>60) 02/22/18 04:55 Est GFR (MDRD) Non-Af > 60 (>60) 02/22/18 04:55 Glucose 96 mg/dL (65-99) 02/22/18 04:55 POC Glucose (mg/dL) 177 mg/dL (65-99) H 02/21/18 11:58 Calcium 7.3 mg/dL (8.5-10.1) L 02/22/18 04:55 Corrected Calcium 8.1 mg/dL (8.5-10.1) L 02/22/18 04:55 Total Bilirubin 0.40 mg/dL (0.2-1.0) 02/22/18 04:55 AST 20 Units/L (15-37) 02/22/18 04:55 ALT 15 Units/L (12-78) 02/22/18 04:55 Alkaline Phosphatase 78 Units/L (46-116) 02/22/18 04:55 Total Protein 6.3 g/dL (6.4-8.2) L 02/22/18 04:55 Albumin 3.0 g/dL (3.4-5.0) L 02/22/18 04:55 Globulin 3.3 g/dL (2.5-4.5) 02/22/18 04:55 Albumin/Globulin Ratio 0.9 Ratio (1.1-2.1) L 02/22/18 04:55 Amylase 36 Units/L (25-115) 02/22/18 04:55 Lipase 159 Units/L (73-393) 02/22/18 04:55 Specimen Type Clean catch urine 02/21/18 16:47 Urine Color Yellow (YELLOW) 02/21/18 16:47 Urine Appearance Clear (CLEAR) 02/21/18 16:47 Urine pH 6.0 (5.0 - 8.0) 02/21/18 16:47 Ur Specific [place] 1.025 (1.000-1.030) 02/21/18 16:47 Urine Protein 1+ (NEGATIVE) 02/21/18 16:47 Urine Glucose (UA) Negative (NEGATIVE) 02/21/18 16:47 Urine Ketones Negative (NEGATIVE) 02/21/18 16:47 Urine Occult Blood Negative (NEGATIVE) 02/21/18 16:47 Urine Nitrite Negative (NEGATIVE) 02/21/18 16:47 Urine Bilirubin Negative (NEGATIVE) 02/21/18 16:47 Urine Urobilinogen Normal (NORMAL) 02/21/18 16:47 Ur Leukocyte Esterase Negative (NEGATIVE) 02/21/18 16:47 Urine RBC 0-2 /HPF (NONE SEEN) 02/21/18 16:47 Urine WBC 0-2 /HPF (NONE SEEN) 02/21/18 16:47 Ur Squamous Epith Cells Numerous /HPF (NEGATIVE) 02/21/18 16:47 Urine Bacteria Trace /HPF (NEGATIVE) 02/21/18 16:47 Urine Mucus Few /HPF (NEGATIVE) 02/21/18 16:47 Ur Culture Indicated? No/not indicated 02/21/18 16:47 - Plan (1) Bowel obstruction Status: Acute Plan: NPO, NG TUBE AT LIS. AM KUB PENDING, PAIN AND NAUSEA CONTORL. IV PROTONIX, MONITOR. GENTLE IV HYDRATION, BP CONTROL (2) Hypothyroid Status: Acute (3) Hypertension Status: Chronic (4) RUQ abdominal pain Status: Acute Plan: GB US,NPO
[2018-02-22] MEDS: PROTONIX INJ 40 MG VIAL IVP SCH (13:57)
--- NOTE | 2018-02-22 16:31 | US ---
HISTORY: Abdominal pain Study: Right upper quadrant abdominal ultrasound Comparison: CT 02/21/2018, radiograph 02/22/2018 Technique: Multiple teague scale and color flow Doppler images of the right upper quadrant were obtaine d. Findings: The liver is normal in echotexture and size. No focal intraparenchymal mass or intrahepatic biliary ductal dilatation is observed. There is hepatopetal flow in the portal vein. No evidence of gallstone s. The common bile duct measures 4 mm. No pericholecystic fluid or gallbladder wall thickening. No sonographic Maloney's sign reported. The right kidney appears normal in size without focal parenchymal mass or nephrolithiasis. The right kidney measures 9 x 5 x 5 cm. Doppler flow not well evaluated due to body habitus and surrounding jael wel gas. No evidence of hydronephrosis. The visualized portions of the pancreas are unremarkable. IMPRESSION: 1. Negative right upper quadrant ultrasound. Reported By:
[2018-02-23] MEDS: NS 1000 ML 1,000 ML IV SCH ×3 (04:09→17:10)
[2018-02-23 05:57] LABS: BASOPHILS % (AUTO) 0.5 % (0.2-1.0); EOSINOPHILS # (AUTO) 1.1 x10^3/uL (0.0-0.2); EOSINOPHILS % (AUTO) 13.4 % (0.9-2.9); HEMATOCRIT 39.8 % (36.0-47.0); HEMOGLOBIN 13.7 g/dL (12.0-16.0); LYMPHOCYTES # (AUTO) 1.6 X10^3/uL (1.3-2.9); LYMPHOCYTES % (AUTO) 19.9 % (21.0-51.0); MEAN CORPUSCULAR HEMOGLOBIN 30.6 pg (27.0-34.0); MEAN CORPUSCULAR HGB CONC 34.3 g/dL (33.0-35.0); MEAN CORPUSCULAR VOLUME 89.3 fL (80.0-100.0); MEAN PLATELET VOLUME 8.1 fL (7.4-11.0); MONOCYTES # (AUTO) 0.3 x10^3/uL (0.3-0.8); MONOCYTES % (AUTO) 4.1 % (0.0-13.0); NEUTROPHILS % (AUTO) 62.1 % (42.0-75.0); PLATELET COUNT 268 X10^3/uL (150.0-450.0); RED BLOOD COUNT 4.46 X10^6/uL (3.5-5.4); RED CELL DISTRIBUTION WIDTH 13.8 % (11.6-16.5)
[2018-02-23 06:16] LABS: ALANINE AMINOTRANSFERASE 14 Units/L (12-78); ALBUMIN 3.1 g/dL (3.4-5.0); ALKALINE PHOSPHATASE 78 Units/L (46-116); ASPARTATE AMINO TRANSFERASE 20 Units/L (15-37); BLOOD UREA NITROGEN 10 mg/dL (7-18); CALCIUM 7.8 mg/dL (8.5-10.1); CHLORIDE 105 mmol/L (98-107); COR CA(FOR HYPOALB) 8.5 mg/dL (8.5-10.1); CREATININE 0.66 mg/dL (0.55-1.02); SODIUM 140 mmol/L (136-145); TOTAL PROTEIN 6.6 g/dL (6.4-8.2); eGFR NON BLACK RACES > 60 (>60)
[2018-02-23] MEDS: SYNTHROID 50 mcg TAB PO SCH (08:26)
[2018-02-23] MEDS: TAMBOCOR PO SCH ×2 (08:26→21:51)
[2018-02-23] MEDS: PROTONIX INJ 40 MG VIAL IVP SCH (08:26)
[2018-02-23] MEDS: LOPRESSOR TAB 25 MG PO SCH ×2 (08:26→21:09)
[2018-02-23] MEDS: MORPHINE SULFATE INJ 2 MG INJ IVP PRN ×2 (10:09→17:17)
--- NOTE | 2018-02-23 12:32 | RAD ---
Examination: KUB History: Abdominal pain Comparison 02/22/2018 Findings: There is slight scattered distention of segments of small bowel and colon. The appearance i s not diagnostic of obstruction. There is no evidence for pneumatosis, ascites or mass formation. Rad iographic detail is limited by motion artifact. Impression: Slight intestinal distention most consistent with ileus. Reported By:
[2018-02-23 13:50] LABS: ALANINE AMINOTRANSFERASE 15 Units/L (12-78); ALBUMIN 3.2 g/dL (3.4-5.0); ALKALINE PHOSPHATASE 85 Units/L (46-116); ASPARTATE AMINO TRANSFERASE 22 Units/L (15-37); BLOOD UREA NITROGEN 10 mg/dL (7-18); CALCIUM 7.9 mg/dL (8.5-10.1); CARBON DIOXIDE 22.9 mmol/L (21-32); CHLORIDE 106 mmol/L (98-107); COR CA(FOR HYPOALB) 8.5 mg/dL (8.5-10.1); CREATININE 0.66 mg/dL (0.55-1.02); SODIUM 141 mmol/L (136-145); TOTAL PROTEIN 6.9 g/dL (6.4-8.2); eGFR NON BLACK RACES > 60 (>60)
[2018-02-23] MEDS ORDERED: MORPHINE SULFATE INJ 4 MG ONE (17:16)
[2018-02-24 05:27] LABS: BASOPHILS % (AUTO) 0.5 % (0.2-1.0); EOSINOPHILS # (AUTO) 1.2 x10^3/uL (0.0-0.2); EOSINOPHILS % (AUTO) 14.6 % (0.9-2.9); HEMATOCRIT 37.5 % (36.0-47.0); HEMOGLOBIN 13.1 g/dL (12.0-16.0); LYMPHOCYTES # (AUTO) 1.8 X10^3/uL (1.3-2.9); LYMPHOCYTES % (AUTO) 22.5 % (21.0-51.0); MEAN CORPUSCULAR HEMOGLOBIN 30.5 pg (27.0-34.0); MEAN CORPUSCULAR HGB CONC 34.8 g/dL (33.0-35.0); MEAN CORPUSCULAR VOLUME 87.5 fL (80.0-100.0); MEAN PLATELET VOLUME 7.6 fL (7.4-11.0); MONOCYTES # (AUTO) 0.4 x10^3/uL (0.3-0.8); MONOCYTES % (AUTO) 4.9 % (0.0-13.0); NEUTROPHILS # (AUTO) 4.6 x10^3/uL (2.2-4.8); NEUTROPHILS % (AUTO) 57.5 % (42.0-75.0); PLATELET COUNT 285 X10^3/uL (150.0-450.0); RED BLOOD COUNT 4.28 X10^6/uL (3.5-5.4); RED CELL DISTRIBUTION WIDTH 13.6 % (11.6-16.5)
[2018-02-24 05:42] LABS: ALANINE AMINOTRANSFERASE 13 Units/L (12-78); ALKALINE PHOSPHATASE 75 Units/L (46-116); ASPARTATE AMINO TRANSFERASE 20 Units/L (15-37); BLOOD UREA NITROGEN 9 mg/dL (7-18); CALCIUM 7.7 mg/dL (8.5-10.1); CARBON DIOXIDE 24.6 mmol/L (21-32); CHLORIDE 107 mmol/L (98-107); COR CA(FOR HYPOALB) 8.5 mg/dL (8.5-10.1); CREATININE 0.64 mg/dL (0.55-1.02); SODIUM 142 mmol/L (136-145); TOTAL PROTEIN 6.6 g/dL (6.4-8.2); eGFR NON BLACK RACES > 60 (>60)
[2018-02-24] MEDS: MORPHINE SULFATE INJ 2 MG INJ IVP PRN (08:08)
[2018-02-24] MEDS: LOPRESSOR TAB 25 MG PO SCH ×2 (08:08→20:32)
[2018-02-24] MEDS: SYNTHROID 50 mcg TAB PO SCH (08:08)
[2018-02-24] MEDS: PROTONIX INJ 40 MG VIAL IVP SCH (08:08)
[2018-02-24] MEDS: TAMBOCOR PO SCH ×2 (10:00→20:33)
--- NOTE | 2018-02-24 10:09 | CT ---
HISTORY: Abdominal pain, small-bowel obstruction Study: CT abdomen and pelvis without contrast Comparison: KUB 02/23/2018, CT 02/21/2018 Technique: Multiple axial images of the abdomen and pelvis were obtained without IV contrast. Dose reduction t echniques including Automated Exposure Control (AEC) and adjustment of mA and kV were utilized. Findings: Please note evaluation is limited without use of IV contrast. There is a moderate-sized hiatal hernia. There is a trace right pleural effusion. The lungs are other martinez clear. There is mild pack steatosis. The unenhanced spleen, pancreas and adrenal glands are unr emarkable. Gallbladder is distended without definite calcified stone or evidence of biliary obstructi on. No renal calculi or obstructive uropathy identified. The ureters are normal. No free intraperitoneal air. Interval resolution of small-bowel dilation seen on prior CT exam. The a ppendix is normal. No evidence of obstruction or intestinal inflammation. No free fluid is identified . There are a few scattered colonic diverticula noted distally without evidence of acute inflammation . There is a small fat containing umbilical hernia. The bony structures are intact. Limited evaluation of vascular structures due to lack of contrast. No pathologically enlarged lymph nodes are identified . Normal urinary bladder. IMPRESSION: 1. Interval resolution of previous dilated small bowel loops with no evidence of intestinal obstructi on on today's exam. 2. Trace right pleural effusion. 3. Moderate-sized hiatal hernia. 4. Mild hepatic steatosis and colonic diverticulosis. Reported By:
--- NOTE | 2018-02-24 17:28 | PCM.PROG ---
Progress Note - Progress Note for Day of Date of Exam: 02/23/18 - Subjective Subjective: 62 WF ER ADMISSION ON 02/21 WITH POSSIBLE SBO VS ILEUS. PT NG TUBE D/C WITH IMPROVING NAUSEA, PT CONTINUES WITH MILD MID ABDOMINAL PAIN. ON ADMISSION AMYLASE AND LIPASE NORMAL, AFEBRILE, LACTIC ACID NORMAL, GALLBLADDER US. CONTINUE NPO,PAIN AND NAUSEA CONTROL, CLEAR LIQUID DIET - Past Medical Family Social History Past Med/Fam/Surg Hx: No changes since H&P Allergies: Allergies cinnamon Allergy (Verified 02/21/18 05:19) codeine Allergy (Verified 02/21/18 05:19) - Review of Systems ROS: No change since H&P - Vital Signs and I&O's Vital Signs: Temperature 98.3 F Pulse Rate [Left Brachial] 60 Pulse Rate 83 Respiratory Rate 20 Blood Pressure [Left Arm] 147/67 Blood Pressure [Right Arm] 157/67 Blood Pressure 136/62 O2 Sat by Pulse Oximetry 99 Intake and Output: Intake & Output 02/22/18 02/23/18 02/24/18 02/25/18 11:59 11:59 11:59 11:59 Intake Total 1188 / 1188 1213 / 1213 1468 / 1468 1360 / 1360 Output Total 100 / 100 Balance 1088 / 1088 1213 / 1213 1468 / 1468 1360 / 1360 - Physical Exam Oriented: Normal Eyes: Normal Ear: Normal Nose: Normal Throat: Normal Respiratory: Normal Cardiovascular: Normal : Normal Auscultation: Bowel Sounds: Decreased Tenderness: RUQ, Epigastric, Periumbilical, Moderate Skin: Normal Musculoskeletal: Normal Psychiatric: Anxiety Affect: Anxious Speech Pattern: Clear, Appropriate - Laboratory and Diagnostics Result Diagrams: 02/24/18 04:50 02/24/18 04:50 Labs: Laboratory WBC 8.0 X10^3/uL (3.6-10.0) 02/24/18 04:50 RBC 4.28 X10^6/uL (3.5-5.4) 02/24/18 04:50 Hgb 13.1 g/dL (12.0-16.0) 02/24/18 04:50 Hct 37.5 % (36.0-47.0) 02/24/18 04:50 MCV 87.5 fL (80.0-100.0) 02/24/18 04:50 MCH 30.5 pg (27.0-34.0) 02/24/18 04:50 MCHC 34.8 g/dL (33.0-35.0) 02/24/18 04:50 RDW 13.6 % (11.6-16.5) 02/24/18 04:50 Plt Count 285 X10^3/uL (150.0-450.0) 02/24/18 04:50 MPV 7.6 fL (7.4-11.0) 02/24/18 04:50 Neut % (Auto) 57.5 % (42.0-75.0) 02/24/18 04:50 Lymph % (Auto) 22.5 % (21.0-51.0) 02/24/18 04:50 [place] % (Auto) 4.9 % (0.0-13.0) 02/24/18 04:50 Eos % (Auto) 14.6 % (0.9-2.9) H 02/24/18 04:50 Baso % (Auto) 0.5 % (0.2-1.0) 02/24/18 04:50 Neut # (Auto) 4.6 x10^3/uL (2.2-4.8) 02/24/18 04:50 Lymph # (Auto) 1.8 X10^3/uL (1.3-2.9) 02/24/18 04:50 [place] # (Auto) 0.4 x10^3/uL (0.3-0.8) 02/24/18 04:50 Eos # (Auto) 1.2 x10^3/uL (0.0-0.2) H 02/24/18 04:50 Baso # (Auto) 0.0 X10^3/uL (0.0-0.1) 02/24/18 04:50 Absolute Nucleated RBC 0.0 /100WBC 02/24/18 04:50 Sodium 142 mmol/L (136-145) 02/24/18 04:50 Corrected Sodium TNP 02/24/18 04:50 Potassium 3.8 mmol/L (3.5-5.1) 02/24/18 04:50 Chloride 107 mmol/L (98-107) 02/24/18 04:50 Carbon Dioxide 24.6 mmol/L (21-32) 02/24/18 04:50 BUN 9 mg/dL (7-18) 02/24/18 04:50 Creatinine 0.64 mg/dL (0.55-1.02) 02/24/18 04:50 Est GFR (MDRD) Af Amer > 60 (>60) 02/24/18 04:50 Est GFR (MDRD) Non-Af > 60 (>60) 02/24/18 04:50 Glucose 88 mg/dL (65-99) 02/24/18 04:50 POC Glucose (mg/dL) Cancelled 02/21/18 11:58 Lactic Acid 1.1 mmol/L (0.4-2.0) 02/22/18 12:36 Calcium 7.7 mg/dL (8.5-10.1) L 02/24/18 04:50 Corrected Calcium 8.5 mg/dL (8.5-10.1) 02/24/18 04:50 Total Bilirubin 0.40 mg/dL (0.2-1.0) 02/24/18 04:50 AST 20 Units/L (15-37) 02/24/18 04:50 ALT 13 Units/L (12-78) 02/24/18 04:50 Alkaline Phosphatase 75 Units/L (46-116) 02/24/18 04:50 Total Protein 6.6 g/dL (6.4-8.2) 02/24/18 04:50 Albumin 3.0 g/dL (3.4-5.0) L 02/24/18 04:50 Globulin 3.6 g/dL (2.5-4.5) 02/24/18 04:50 Albumin/Globulin Ratio 0.8 Ratio (1.1-2.1) L 02/24/18 04:50 Amylase 36 Units/L (25-115) 02/22/18 04:55 Lipase 159 Units/L (73-393) 02/22/18 04:55 Specimen Type Clean catch urine 02/21/18 16:47 Urine Color Yellow (YELLOW) 02/21/18 16:47 Urine Appearance Clear (CLEAR) 02/21/18 16:47 Urine pH 6.0 (5.0 - 8.0) 02/21/18 16:47 Ur Specific [place] 1.025 (1.000-1.030) 02/21/18 16:47 Urine Protein 1+ (NEGATIVE) 02/21/18 16:47 Urine Glucose (UA) Negative (NEGATIVE) 02/21/18 16:47 Urine Ketones Negative (NEGATIVE) 02/21/18 16:47 Urine Occult Blood Negative (NEGATIVE) 02/21/18 16:47 Urine Nitrite Negative (NEGATIVE) 02/21/18 16:47 Urine Bilirubin Negative (NEGATIVE) 02/21/18 16:47 Urine Urobilinogen Normal (NORMAL) 02/21/18 16:47 Ur Leukocyte Esterase Negative (NEGATIVE) 02/21/18 16:47 Urine RBC 0-2 /HPF (NONE SEEN) 02/21/18 16:47 Urine WBC 0-2 /HPF (NONE SEEN) 02/21/18 16:47 Ur Squamous Epith Cells Numerous /HPF (NEGATIVE) 02/21/18 16:47 Urine Bacteria Trace /HPF (NEGATIVE) 02/21/18 16:47 Urine Mucus Few /HPF (NEGATIVE) 02/21/18 16:47 Ur Culture Indicated? No/not indicated 02/21/18 16:47 - Plan (1) Bowel obstruction Status: Acute Plan: CLEAR LIQUIDS TOLERATED. AM KUB PENDING, PAIN AND NAUSEA CONTORL. IV PROTONIX, MONITOR. GENTLE IV HYDRATION, BP CONTROL. GBUS (2) Hypothyroid Status: Acute (3) Hypertension Status: Chronic (4) RUQ abdominal pain Status: Acute Plan: GB US, NPO UNTIL AFTER US THEN CLEAR LIQUIDS
--- NOTE | 2018-02-24 17:31 | PCM.PROG ---
Progress Note - Progress Note for Day of Date of Exam: 02/24/18 - Subjective Subjective: 62 WF ER ADMISSION ON 02/21 WITH POSSIBLE SBO VS ILEUS. PT CONTINUES WITH MILD MID ABDOMINAL PAIN. ON ADMISSION AMYLASE AND LIPASE NORMAL, AFEBRILE, LACTIC ACID NORMAL, GALLBLADDER US NEGATIVE FOR ACUTE FINDINGS, CLEAR LIQUID DIET. CT SCAN RESOLVED SBO. AM HIDA SCAN, BENTYL PO - Past Medical Family Social History Past Med/Fam/Surg Hx: No changes since H&P Allergies: Allergies cinnamon Allergy (Verified 02/21/18 05:19) codeine Allergy (Verified 02/21/18 05:19) - Review of Systems ROS: No change since H&P - Vital Signs and I&O's Vital Signs: Temperature 98.3 F Pulse Rate [Left Brachial] 60 Pulse Rate 83 Respiratory Rate 20 Blood Pressure [Left Arm] 147/67 Blood Pressure [Right Arm] 157/67 Blood Pressure 136/62 O2 Sat by Pulse Oximetry 99 Intake and Output: Intake & Output 02/22/18 02/23/18 02/24/18 02/25/18 11:59 11:59 11:59 11:59 Intake Total 1188 / 1188 1213 / 1213 1468 / 1468 1360 / 1360 Output Total 100 / 100 Balance 1088 / 1088 1213 / 1213 1468 / 1468 1360 / 1360 - Physical Exam Oriented: Normal Eyes: Normal Ear: Normal Nose: Normal Throat: Normal Respiratory: Normal Cardiovascular: Normal : Normal Auscultation: Bowel Sounds: Decreased Tenderness: RUQ, Epigastric, Periumbilical, Moderate Skin: Normal Musculoskeletal: Normal Psychiatric: Anxiety Affect: Anxious Speech Pattern: Clear, Appropriate - Laboratory and Diagnostics Result Diagrams: 02/24/18 04:50 02/24/18 04:50 Labs: Laboratory WBC 8.0 X10^3/uL (3.6-10.0) 02/24/18 04:50 RBC 4.28 X10^6/uL (3.5-5.4) 02/24/18 04:50 Hgb 13.1 g/dL (12.0-16.0) 02/24/18 04:50 Hct 37.5 % (36.0-47.0) 02/24/18 04:50 MCV 87.5 fL (80.0-100.0) 02/24/18 04:50 MCH 30.5 pg (27.0-34.0) 02/24/18 04:50 MCHC 34.8 g/dL (33.0-35.0) 02/24/18 04:50 RDW 13.6 % (11.6-16.5) 02/24/18 04:50 Plt Count 285 X10^3/uL (150.0-450.0) 02/24/18 04:50 MPV 7.6 fL (7.4-11.0) 02/24/18 04:50 Neut % (Auto) 57.5 % (42.0-75.0) 02/24/18 04:50 Lymph % (Auto) 22.5 % (21.0-51.0) 02/24/18 04:50 [place] % (Auto) 4.9 % (0.0-13.0) 02/24/18 04:50 Eos % (Auto) 14.6 % (0.9-2.9) H 02/24/18 04:50 Baso % (Auto) 0.5 % (0.2-1.0) 02/24/18 04:50 Neut # (Auto) 4.6 x10^3/uL (2.2-4.8) 02/24/18 04:50 Lymph # (Auto) 1.8 X10^3/uL (1.3-2.9) 02/24/18 04:50 [place] # (Auto) 0.4 x10^3/uL (0.3-0.8) 02/24/18 04:50 Eos # (Auto) 1.2 x10^3/uL (0.0-0.2) H 02/24/18 04:50 Baso # (Auto) 0.0 X10^3/uL (0.0-0.1) 02/24/18 04:50 Absolute Nucleated RBC 0.0 /100WBC 02/24/18 04:50 Sodium 142 mmol/L (136-145) 02/24/18 04:50 Corrected Sodium TNP 02/24/18 04:50 Potassium 3.8 mmol/L (3.5-5.1) 02/24/18 04:50 Chloride 107 mmol/L (98-107) 02/24/18 04:50 Carbon Dioxide 24.6 mmol/L (21-32) 02/24/18 04:50 BUN 9 mg/dL (7-18) 02/24/18 04:50 Creatinine 0.64 mg/dL (0.55-1.02) 02/24/18 04:50 Est GFR (MDRD) Af Amer > 60 (>60) 02/24/18 04:50 Est GFR (MDRD) Non-Af > 60 (>60) 02/24/18 04:50 Glucose 88 mg/dL (65-99) 02/24/18 04:50 POC Glucose (mg/dL) Cancelled 02/21/18 11:58 Lactic Acid 1.1 mmol/L (0.4-2.0) 02/22/18 12:36 Calcium 7.7 mg/dL (8.5-10.1) L 02/24/18 04:50 Corrected Calcium 8.5 mg/dL (8.5-10.1) 02/24/18 04:50 Total Bilirubin 0.40 mg/dL (0.2-1.0) 02/24/18 04:50 AST 20 Units/L (15-37) 02/24/18 04:50 ALT 13 Units/L (12-78) 02/24/18 04:50 Alkaline Phosphatase 75 Units/L (46-116) 02/24/18 04:50 Total Protein 6.6 g/dL (6.4-8.2) 02/24/18 04:50 Albumin 3.0 g/dL (3.4-5.0) L 02/24/18 04:50 Globulin 3.6 g/dL (2.5-4.5) 02/24/18 04:50 Albumin/Globulin Ratio 0.8 Ratio (1.1-2.1) L 02/24/18 04:50 Amylase 36 Units/L (25-115) 02/22/18 04:55 Lipase 159 Units/L (73-393) 02/22/18 04:55 Specimen Type Clean catch urine 02/21/18 16:47 Urine Color Yellow (YELLOW) 02/21/18 16:47 Urine Appearance Clear (CLEAR) 02/21/18 16:47 Urine pH 6.0 (5.0 - 8.0) 02/21/18 16:47 Ur Specific [place] 1.025 (1.000-1.030) 02/21/18 16:47 Urine Protein 1+ (NEGATIVE) 02/21/18 16:47 Urine Glucose (UA) Negative (NEGATIVE) 02/21/18 16:47 Urine Ketones Negative (NEGATIVE) 02/21/18 16:47 Urine Occult Blood Negative (NEGATIVE) 02/21/18 16:47 Urine Nitrite Negative (NEGATIVE) 02/21/18 16:47 Urine Bilirubin Negative (NEGATIVE) 02/21/18 16:47 Urine Urobilinogen Normal (NORMAL) 02/21/18 16:47 Ur Leukocyte Esterase Negative (NEGATIVE) 02/21/18 16:47 Urine RBC 0-2 /HPF (NONE SEEN) 02/21/18 16:47 Urine WBC 0-2 /HPF (NONE SEEN) 02/21/18 16:47 Ur Squamous Epith Cells Numerous /HPF (NEGATIVE) 02/21/18 16:47 Urine Bacteria Trace /HPF (NEGATIVE) 02/21/18 16:47 Urine Mucus Few /HPF (NEGATIVE) 02/21/18 16:47 Ur Culture Indicated? No/not indicated 02/21/18 16:47 - Plan (1) Bowel obstruction Status: Acute Plan: CLEAR LIQUIDS TOLERATED. AM KUB PENDING, PAIN AND NAUSEA CONTORL. IV PROTONIX, MONITOR. GENTLE IV HYDRATION, BP CONTROL. AM HIDA SCAN (2) Hypothyroid Status: Acute (3) Hypertension Status: Chronic (4) RUQ abdominal pain Status: Acute Plan: GB US, NPO UNTIL AFTER US THEN CLEAR LIQUIDS
[2018-02-24] MEDS: NS 1000 ML 1,000 ML IV SCH ×2 (18:13→18:14)
[2018-02-24] MEDS: BENTYL CAP 10 MG PO PRN (19:42)
[2018-02-24] MEDS: PEPCID 20 MG IV PREMIX* 20 MG/50 ML BAG IV PRN (19:42)
[2018-02-24] MEDS: DEMEROL INJ IVP PRN (20:55)
[2018-02-25 05:41] LABS: BASOPHILS % (AUTO) 0.5 % (0.2-1.0); EOSINOPHILS # (AUTO) 1.1 x10^3/uL (0.0-0.2); EOSINOPHILS % (AUTO) 15.5 % (0.9-2.9); HEMATOCRIT 38.9 % (36.0-47.0); HEMOGLOBIN 13.3 g/dL (12.0-16.0); LYMPHOCYTES # (AUTO) 1.8 X10^3/uL (1.3-2.9); MEAN CORPUSCULAR HEMOGLOBIN 30.3 pg (27.0-34.0); MEAN CORPUSCULAR HGB CONC 34.2 g/dL (33.0-35.0); MEAN CORPUSCULAR VOLUME 88.8 fL (80.0-100.0); MEAN PLATELET VOLUME 7.5 fL (7.4-11.0); MONOCYTES # (AUTO) 0.4 x10^3/uL (0.3-0.8); MONOCYTES % (AUTO) 5.9 % (0.0-13.0); NEUTROPHILS # (AUTO) 3.5 x10^3/uL (2.2-4.8); NEUTROPHILS % (AUTO) 51.1 % (42.0-75.0); PLATELET COUNT 277 X10^3/uL (150.0-450.0); RED BLOOD COUNT 4.38 X10^6/uL (3.5-5.4); RED CELL DISTRIBUTION WIDTH 13.6 % (11.6-16.5); WHITE BLOOD COUNT 6.8 X10^3/uL (3.6-10.0)
[2018-02-25] MEDS: DEMEROL INJ IVP PRN ×3 (08:52→21:27)
[2018-02-25] MEDS: PROTONIX INJ 40 MG VIAL IVP SCH (08:53)
[2018-02-25] MEDS: NS 1000 ML 1,000 ML IV SCH ×3 (10:51→15:13)
[2018-02-25] MEDS: TAMBOCOR PO SCH ×2 (10:53→21:26)
[2018-02-25] MEDS: LOPRESSOR TAB 25 MG PO SCH ×2 (10:53→21:26)
[2018-02-25] MEDS: SYNTHROID 50 mcg TAB PO SCH (10:54)
--- NOTE | 2018-02-25 13:59 | NM ---
HISTORY: Right upper quadrant abdominal pain and food intolerance Study: Nuclear medicine HIDA scan with ejection fraction Comparison: None Technique: Multiple scintigraphic images of the abdomen were obtained the intravenous administration of 5.5 mCi of technetium labeled Choletec. Following distention of the gallbladder with radiotracer, 8 oz of Ensure Plus was administered to the patient in the normal oral fashion. An estimated gallbladder ejection fraction was calculated based on the physiologic response of this fatty meal. Findings: Homogeneous uptake of radiotracer is seen throughout the liver. This intrabiliary ductal system is o bserved normally. The common hepatic and common bile duct grossly appear unremarkable with normal bi liary-bowel transit. The gallbladder is observed to fill normally. After the oral administration of Ensure Plus, a low gallbladder ejection fraction of 26% (normal > 35 %) is observed. IMPRESSION: 1. No evidence of acute cholecystitis. 2. Low gallbladder ejection fraction, consistent with chronic cholecystitis or biliary dyskinesia. Reported By:
--- NOTE | 2018-02-25 17:23 | PCM.PROG ---
Progress Note - Progress Note for Day of Date of Exam: 02/25/18 - Subjective Subjective: 62 WF ER ADMISSION ON 02/21 WITH POSSIBLE SBO VS ILEUS. PT CONTINUES WITH MILD MID ABDOMINAL PAIN. ON ADMISSION AMYLASE AND LIPASE NORMAL, AFEBRILE, LACTIC ACID NORMAL, GALLBLADDER US NEGATIVE FOR ACUTE FINDINGS, CLEAR LIQUID DIET. CT SCAN RESOLVED SBO, HOWEVER PT CONTINUES WITH UPPER AND RUQ PAIN AND WITH FOOD INTOLERANCE. HIDA SCAN FOR THIS AM. AM HIDA SCAN, BENTYL PO - Past Medical Family Social History Past Med/Fam/Surg Hx: No changes since H&P Allergies: Allergies cinnamon Allergy (Verified 02/21/18 05:19) codeine Allergy (Verified 02/21/18 05:19) - Review of Systems ROS: No change since H&P - Vital Signs and I&O's Vital Signs: Temperature 98.5 F Pulse Rate [Left Brachial] 64 Pulse Rate 83 Respiratory Rate 20 Blood Pressure [Left Arm] 147/67 Blood Pressure [Right Arm] 145/65 Blood Pressure 136/62 O2 Sat by Pulse Oximetry 94 Intake and Output: Intake & Output 02/23/18 02/24/18 02/25/18 02/26/18 11:59 11:59 11:59 11:59 Intake Total 1213 / 1213 1468 / 1468 3060 / 3060 0 / 0 Balance 1213 / 1213 1468 / 1468 3060 / 3060 0 / 0 - Physical Exam Oriented: Normal Eyes: Normal Ear: Normal Nose: Normal Throat: Normal Respiratory: Normal Cardiovascular: Normal : Normal Auscultation: Bowel Sounds: Decreased Tenderness: RUQ, Epigastric, Periumbilical, Moderate Skin: Normal Musculoskeletal: Normal Psychiatric: Anxiety Affect: Anxious Speech Pattern: Clear, Appropriate - Laboratory and Diagnostics Result Diagrams: 02/25/18 05:12 02/24/18 04:50 Labs: Laboratory WBC 6.8 X10^3/uL (3.6-10.0) 02/25/18 05:12 RBC 4.38 X10^6/uL (3.5-5.4) 02/25/18 05:12 Hgb 13.3 g/dL (12.0-16.0) 02/25/18 05:12 Hct 38.9 % (36.0-47.0) 02/25/18 05:12 MCV 88.8 fL (80.0-100.0) 02/25/18 05:12 MCH 30.3 pg (27.0-34.0) 02/25/18 05:12 MCHC 34.2 g/dL (33.0-35.0) 02/25/18 05:12 RDW 13.6 % (11.6-16.5) 02/25/18 05:12 Plt Count 277 X10^3/uL (150.0-450.0) 02/25/18 05:12 MPV 7.5 fL (7.4-11.0) 02/25/18 05:12 Neut % (Auto) 51.1 % (42.0-75.0) 02/25/18 05:12 Lymph % (Auto) 27.0 % (21.0-51.0) 02/25/18 05:12 [place] % (Auto) 5.9 % (0.0-13.0) 02/25/18 05:12 Eos % (Auto) 15.5 % (0.9-2.9) H 02/25/18 05:12 Baso % (Auto) 0.5 % (0.2-1.0) 02/25/18 05:12 Neut # (Auto) 3.5 x10^3/uL (2.2-4.8) 02/25/18 05:12 Lymph # (Auto) 1.8 X10^3/uL (1.3-2.9) 02/25/18 05:12 [place] # (Auto) 0.4 x10^3/uL (0.3-0.8) 02/25/18 05:12 Eos # (Auto) 1.1 x10^3/uL (0.0-0.2) H 02/25/18 05:12 Baso # (Auto) 0.0 X10^3/uL (0.0-0.1) 02/25/18 05:12 Absolute Nucleated RBC 0.0 /100WBC 02/25/18 05:12 Sodium 142 mmol/L (136-145) 02/24/18 04:50 Corrected Sodium TNP 02/24/18 04:50 Potassium 3.8 mmol/L (3.5-5.1) 02/24/18 04:50 Chloride 107 mmol/L (98-107) 02/24/18 04:50 Carbon Dioxide 24.6 mmol/L (21-32) 02/24/18 04:50 BUN 9 mg/dL (7-18) 02/24/18 04:50 Creatinine 0.64 mg/dL (0.55-1.02) 02/24/18 04:50 Est GFR (MDRD) Af Amer > 60 (>60) 02/24/18 04:50 Est GFR (MDRD) Non-Af > 60 (>60) 02/24/18 04:50 Glucose 88 mg/dL (65-99) 02/24/18 04:50 POC Glucose (mg/dL) Cancelled 02/21/18 11:58 Lactic Acid 1.1 mmol/L (0.4-2.0) 02/22/18 12:36 Calcium 7.7 mg/dL (8.5-10.1) L 02/24/18 04:50 Corrected Calcium 8.5 mg/dL (8.5-10.1) 02/24/18 04:50 Total Bilirubin 0.40 mg/dL (0.2-1.0) 02/24/18 04:50 AST 20 Units/L (15-37) 02/24/18 04:50 ALT 13 Units/L (12-78) 02/24/18 04:50 Alkaline Phosphatase 75 Units/L (46-116) 02/24/18 04:50 Total Protein 6.6 g/dL (6.4-8.2) 02/24/18 04:50 Albumin 3.0 g/dL (3.4-5.0) L 02/24/18 04:50 Globulin 3.6 g/dL (2.5-4.5) 02/24/18 04:50 Albumin/Globulin Ratio 0.8 Ratio (1.1-2.1) L 02/24/18 04:50 Amylase 36 Units/L (25-115) 02/22/18 04:55 Lipase 159 Units/L (73-393) 02/22/18 04:55 Specimen Type Clean catch urine 02/21/18 16:47 Urine Color Yellow (YELLOW) 02/21/18 16:47 Urine Appearance Clear (CLEAR) 02/21/18 16:47 Urine pH 6.0 (5.0 - 8.0) 02/21/18 16:47 Ur Specific [place] 1.025 (1.000-1.030) 02/21/18 16:47 Urine Protein 1+ (NEGATIVE) 02/21/18 16:47 Urine Glucose (UA) Negative (NEGATIVE) 02/21/18 16:47 Urine Ketones Negative (NEGATIVE) 02/21/18 16:47 Urine Occult Blood Negative (NEGATIVE) 02/21/18 16:47 Urine Nitrite Negative (NEGATIVE) 02/21/18 16:47 Urine Bilirubin Negative (NEGATIVE) 02/21/18 16:47 Urine Urobilinogen Normal (NORMAL) 02/21/18 16:47 Ur Leukocyte Esterase Negative (NEGATIVE) 02/21/18 16:47 Urine RBC 0-2 /HPF (NONE SEEN) 02/21/18 16:47 Urine WBC 0-2 /HPF (NONE SEEN) 02/21/18 16:47 Ur Squamous Epith Cells Numerous /HPF (NEGATIVE) 02/21/18 16:47 Urine Bacteria Trace /HPF (NEGATIVE) 02/21/18 16:47 Urine Mucus Few /HPF (NEGATIVE) 02/21/18 16:47 Ur Culture Indicated? No/not indicated 02/21/18 16:47 - Plan (1) Bowel obstruction Status: Acute Plan: CLEAR LIQUIDS TOLERATED. AM KUB PENDING, PAIN AND NAUSEA CONTORL. IV PROTONIX, MONITOR. GENTLE IV HYDRATION, BP CONTROL. NPO HIDA SCAN (2) Hypothyroid Status: Acute (3) Hypertension Status: Chronic (4) RUQ abdominal pain Status: Acute Plan: GB US, NPO UNTIL AFTER US THEN CLEAR LIQUIDS
[2018-02-25] MEDS ORDERED: MILK OF MAGNESIA PO PRN (18:49)
[2018-02-25] MEDS ORDERED: COLACE CAP 100 MG PO PRN (18:49)
[2018-02-25] MEDS: BENTYL CAP 10 MG PO PRN (21:26)
[2018-02-25] MEDS: PEPCID 20 MG IV PREMIX* 20 MG/50 ML BAG IV PRN (21:27)
[2018-02-26 06:22] LABS: BASOPHILS # (AUTO) 0.1 X10^3/uL (0.0-0.1); BASOPHILS % (AUTO) 0.7 % (0.2-1.0); EOSINOPHILS # (AUTO) 1.2 x10^3/uL (0.0-0.2); EOSINOPHILS % (AUTO) 15.6 % (0.9-2.9); HEMATOCRIT 37.4 % (36.0-47.0); HEMOGLOBIN 13.3 g/dL (12.0-16.0); LYMPHOCYTES # (AUTO) 2.1 X10^3/uL (1.3-2.9); LYMPHOCYTES % (AUTO) 27.9 % (21.0-51.0); MEAN CORPUSCULAR HEMOGLOBIN 30.9 pg (27.0-34.0); MEAN CORPUSCULAR HGB CONC 35.5 g/dL (33.0-35.0); MEAN CORPUSCULAR VOLUME 87.2 fL (80.0-100.0); MEAN PLATELET VOLUME 8.5 fL (7.4-11.0); MONOCYTES # (AUTO) 0.4 x10^3/uL (0.3-0.8); NEUTROPHILS # (AUTO) 3.7 x10^3/uL (2.2-4.8); NEUTROPHILS % (AUTO) 49.8 % (42.0-75.0); PLATELET COUNT 300 X10^3/uL (150.0-450.0); RED BLOOD COUNT 4.29 X10^6/uL (3.5-5.4); RED CELL DISTRIBUTION WIDTH 13.6 % (11.6-16.5); WHITE BLOOD COUNT 7.4 X10^3/uL (3.6-10.0)
[2018-02-26 07:39] LABS: STOOL FOR WBC POSITIVE (NEGATIVE)
[2018-02-26] MEDS: LOPRESSOR TAB 25 MG PO SCH ×2 (09:08→20:37)
[2018-02-26] MEDS: TAMBOCOR PO SCH ×2 (09:08→20:37)
[2018-02-26] MEDS: SYNTHROID 50 mcg TAB PO SCH (09:08)
[2018-02-26] MEDS: PROTONIX INJ 40 MG VIAL IVP SCH (09:10)
[2018-02-26] MEDS: NS 1000 ML 1,000 ML IV SCH (09:14)
[2018-02-26] MEDS ORDERED: ANCEF 1 GRAM IV PREMIX* 1 G/50 ML BAG IV ONE (10:48)
[2018-02-26] MEDS ORDERED: DILAUDID INJ ONE ×3 (10:50→12:49)
[2018-02-26] MEDS ORDERED: FENTANYL INJ 100 mcg ONE (10:51)
[2018-02-26] MEDS ORDERED: NS 1000 ML 1,000 ML ONE (11:08)
[2018-02-26] MEDS ORDERED: APRESOLINE TAB 10 MG ONE (11:21)
[2018-02-26] MEDS ORDERED: BACTROBAN TOPICAL OINT ONE (12:20)
[2018-02-26] MEDS: DILAUDID INJ IVP PRN ×3 (12:32→12:48)
[2018-02-26] MEDS ORDERED: PHENERGAN INJ 25 MG ONE (12:33)
[2018-02-26] MEDS ORDERED: PHENERGAN INJ 25 MG IVP PRN (12:34)
[2018-02-26] MEDS ORDERED: ZOFRAN INJ 4 MG VIAL IVP PRN (12:34)
[2018-02-26] MEDS ORDERED: REGLAN INJ 10 MG VIAL IVP PRN (12:34)
[2018-02-26] MEDS ORDERED: BENADRYL INJ 50 MG VIAL IVP PRN (12:34)
[2018-02-26] MEDS: PEPCID 20 MG IV PREMIX* 20 MG/50 ML BAG IV PRN (14:39)
--- NOTE | 2018-02-26 15:18 | PCM.PROG ---
Progress Note - Progress Note for Day of Date of Exam: 02/26/18 - Subjective Subjective: 62 WF ER ADMISSION ON 02/21 WITH POSSIBLE SBO VS ILEUS. PT CONTINUES WITH MILD MID ABDOMINAL PAIN. ON ADMISSION AMYLASE AND LIPASE NORMAL, AFEBRILE, LACTIC ACID NORMAL, GALLBLADDER US NEGATIVE FOR ACUTE FINDINGS, CLEAR LIQUID DIET. CT SCAN RESOLVED SBO, HOWEVER PT CONTINUES WITH UPPER AND RUQ PAIN AND WITH FOOD INTOLERANCE. HIDA SCAN WITH DECREASED EF, BILIARY DYSKENIA. PT IS NPO FOR LAP DE PER DR ASCENCIO SCHEDULED FOR THIS AM - Past Medical Family Social History Past Med/Fam/Surg Hx: No changes since H&P Allergies: Allergies cinnamon Allergy (Verified 02/21/18 05:19) codeine Allergy (Verified 02/21/18 05:19) - Review of Systems ROS: No change since H&P - Vital Signs and I&O's Vital Signs: Temperature 98.6 F Pulse Rate [Left Brachial] 64 Pulse Rate 70 Respiratory Rate 20 Blood Pressure [Left Arm] 175/74 Blood Pressure [Right Arm] 147/61 Blood Pressure 110/56 O2 Sat by Pulse Oximetry 96 Intake and Output: Intake & Output 02/24/18 02/25/18 02/26/18 02/27/18 11:59 11:59 11:59 11:59 Intake Total 1468 / 1468 3060 / 3060 820 / 820 550 / 550 Output Total 450 / 450 Balance 1468 / 1468 3060 / 3060 820 / 820 100 / 100 - Physical Exam Oriented: Normal Eyes: Normal Ear: Normal Nose: Normal Throat: Normal Respiratory: Normal Cardiovascular: Normal : Normal Auscultation: Bowel Sounds: Decreased Tenderness: RUQ, Epigastric, Periumbilical, Moderate Skin: Normal Musculoskeletal: Normal Psychiatric: Anxiety Mood Description: Calm Affect: Anxious Speech Pattern: Clear, Appropriate - Laboratory and Diagnostics Result Diagrams: 02/26/18 04:27 02/24/18 04:50 Labs: 02/26/18 05:37 Stool - Final Laboratory WBC 7.4 X10^3/uL (3.6-10.0) 02/26/18 04:27 RBC 4.29 X10^6/uL (3.5-5.4) 02/26/18 04:27 Hgb 13.3 g/dL (12.0-16.0) 02/26/18 04:27 Hct 37.4 % (36.0-47.0) 02/26/18 04:27 MCV 87.2 fL (80.0-100.0) 02/26/18 04:27 MCH 30.9 pg (27.0-34.0) 02/26/18 04:27 MCHC 35.5 g/dL (33.0-35.0) H 02/26/18 04:27 RDW 13.6 % (11.6-16.5) 02/26/18 04:27 Plt Count 300 X10^3/uL (150.0-450.0) 02/26/18 04:27 MPV 8.5 fL (7.4-11.0) 02/26/18 04:27 Neut % (Auto) 49.8 % (42.0-75.0) 02/26/18 04:27 Lymph % (Auto) 27.9 % (21.0-51.0) 02/26/18 04:27 [place] % (Auto) 6.0 % (0.0-13.0) 02/26/18 04:27 Eos % (Auto) 15.6 % (0.9-2.9) H 02/26/18 04:27 Baso % (Auto) 0.7 % (0.2-1.0) 02/26/18 04:27 Neut # (Auto) 3.7 x10^3/uL (2.2-4.8) 02/26/18 04:27 Lymph # (Auto) 2.1 X10^3/uL (1.3-2.9) 02/26/18 04:27 [place] # (Auto) 0.4 x10^3/uL (0.3-0.8) 02/26/18 04:27 Eos # (Auto) 1.2 x10^3/uL (0.0-0.2) H 02/26/18 04:27 Baso # (Auto) 0.1 X10^3/uL (0.0-0.1) 02/26/18 04:27 Absolute Nucleated RBC 0.1 /100WBC 02/26/18 04:27 Sodium 142 mmol/L (136-145) 02/24/18 04:50 Corrected Sodium TNP 02/24/18 04:50 Potassium 3.8 mmol/L (3.5-5.1) 02/24/18 04:50 Chloride 107 mmol/L (98-107) 02/24/18 04:50 Carbon Dioxide 24.6 mmol/L (21-32) 02/24/18 04:50 BUN 9 mg/dL (7-18) 02/24/18 04:50 Creatinine 0.64 mg/dL (0.55-1.02) 02/24/18 04:50 Est GFR (MDRD) Af Amer > 60 (>60) 02/24/18 04:50 Est GFR (MDRD) Non-Af > 60 (>60) 02/24/18 04:50 Glucose 88 mg/dL (65-99) 02/24/18 04:50 POC Glucose (mg/dL) Cancelled 02/21/18 11:58 Lactic Acid 1.1 mmol/L (0.4-2.0) 02/22/18 12:36 Calcium 7.7 mg/dL (8.5-10.1) L 02/24/18 04:50 Corrected Calcium 8.5 mg/dL (8.5-10.1) 02/24/18 04:50 Total Bilirubin 0.40 mg/dL (0.2-1.0) 02/24/18 04:50 AST 20 Units/L (15-37) 02/24/18 04:50 ALT 13 Units/L (12-78) 02/24/18 04:50 Alkaline Phosphatase 75 Units/L (46-116) 02/24/18 04:50 Total Protein 6.6 g/dL (6.4-8.2) 02/24/18 04:50 Albumin 3.0 g/dL (3.4-5.0) L 02/24/18 04:50 Globulin 3.6 g/dL (2.5-4.5) 02/24/18 04:50 Albumin/Globulin Ratio 0.8 Ratio (1.1-2.1) L 02/24/18 04:50 Amylase 36 Units/L (25-115) 02/22/18 04:55 Lipase 159 Units/L (73-393) 02/22/18 04:55 Specimen Type Clean catch urine 02/21/18 16:47 Urine Color Yellow (YELLOW) 02/21/18 16:47 Urine Appearance Clear (CLEAR) 02/21/18 16:47 Urine pH 6.0 (5.0 - 8.0) 02/21/18 16:47 Ur Specific [place] 1.025 (1.000-1.030) 02/21/18 16:47 Urine Protein 1+ (NEGATIVE) 02/21/18 16:47 Urine Glucose (UA) Negative (NEGATIVE) 02/21/18 16:47 Urine Ketones Negative (NEGATIVE) 02/21/18 16:47 Urine Occult Blood Negative (NEGATIVE) 02/21/18 16:47 Urine Nitrite Negative (NEGATIVE) 02/21/18 16:47 Urine Bilirubin Negative (NEGATIVE) 02/21/18 16:47 Urine Urobilinogen Normal (NORMAL) 02/21/18 16:47 Ur Leukocyte Esterase Negative (NEGATIVE) 02/21/18 16:47 Urine RBC 0-2 /HPF (NONE SEEN) 02/21/18 16:47 Urine WBC 0-2 /HPF (NONE SEEN) 02/21/18 16:47 Ur Squamous Epith Cells Numerous /HPF (NEGATIVE) 02/21/18 16:47 Urine Bacteria Trace /HPF (NEGATIVE) 02/21/18 16:47 Urine Mucus Few /HPF (NEGATIVE) 02/21/18 16:47 Ur Culture Indicated? No/not indicated 02/21/18 16:47 Stool Description 50g brown semi solid 02/26/18 05:37 Stl Occult Blood (IFOB) Negative (NEGATIVE) 02/26/18 05:37 Stool for White Cells Positive (NEGATIVE) A 02/26/18 05:37 Stl C. diff Tox B Gene Negative (NEGATIVE) 02/26/18 05:37 Stl C. diff [id number] Negative (NEGATIVE) 02/26/18 05:37 Tissue Pathology To follow 02/26/18 13:23 - Plan (1) Bowel obstruction Status: Resolved Plan: CLEAR LIQUIDS TOLERATED. PAIN AND NAUSEA CONTORL. IV PROTONIX, MONITOR. GENTLE IV HYDRATION, BP CONTROL. NPO FOR LAP DE THIS AM (2) Hypothyroid Status: Acute (3) Hypertension Status: Chronic (4) RUQ abdominal pain Status: Acute Plan: GB US PERFORMED. NPO FOR LAP DE THIS AM (5) Biliary dyskinesia Status: Acute Plan: NPO, DR HARTMANN CONSULTING. [facility] SET UP FOR THIS AM
[2018-02-26] MEDS ORDERED: ZOFRAN INJ 4 MG VIAL ONE (16:06)
[2018-02-26] MEDS ORDERED: NEOSTIGMINE INJ ONE (16:06)
[2018-02-26] MEDS ORDERED: ROBINUL ONE (16:06)
[2018-02-26] MEDS ORDERED: TORADOL 30 MG VIAL ONE (16:06)
[2018-02-26] MEDS ORDERED: DIPRIVAN VIAL ONE (16:06)
[2018-02-26] MEDS ORDERED: NORCURON INJ 10 MG VIAL ONE (16:06)
[2018-02-26] MEDS ORDERED: ULTANE GAS IN ONE (16:06)
[2018-02-26] MEDS ORDERED: VERSED ONE (16:06)
[2018-02-26] MEDS ORDERED: QUELICIN (OR ANECTINE) ONE (16:06)
[2018-02-26] MEDS: DEMEROL INJ IVP PRN (19:08)
[2018-02-26] MEDS ORDERED: PHENERGAN INJ 25 MG IV PRN (20:31)
[2018-02-27] MEDS: NS 1000 ML 1,000 ML IV SCH (01:50)
[2018-02-27 06:25] LABS: BASOPHILS # (AUTO) 0.1 X10^3/uL (0.0-0.1); BASOPHILS % (AUTO) 0.7 % (0.2-1.0); EOSINOPHILS # (AUTO) 0.5 x10^3/uL (0.0-0.2); EOSINOPHILS % (AUTO) 5.3 % (0.9-2.9); HEMATOCRIT 41.1 % (36.0-47.0); HEMOGLOBIN 14.1 g/dL (12.0-16.0); LYMPHOCYTES # (AUTO) 2.1 X10^3/uL (1.3-2.9); LYMPHOCYTES % (AUTO) 20.8 % (21.0-51.0); MEAN CORPUSCULAR HEMOGLOBIN 30.5 pg (27.0-34.0); MEAN CORPUSCULAR HGB CONC 34.3 g/dL (33.0-35.0); MEAN CORPUSCULAR VOLUME 88.9 fL (80.0-100.0); MEAN PLATELET VOLUME 8.1 fL (7.4-11.0); MONOCYTES # (AUTO) 0.6 x10^3/uL (0.3-0.8); MONOCYTES % (AUTO) 5.7 % (0.0-13.0); NEUTROPHILS # (AUTO) 6.7 x10^3/uL (2.2-4.8); NEUTROPHILS % (AUTO) 67.5 % (42.0-75.0); PLATELET COUNT 328 X10^3/uL (150.0-450.0); RED BLOOD COUNT 4.62 X10^6/uL (3.5-5.4)
[2018-02-27] MEDS: TAMBOCOR PO SCH (08:30)
[2018-02-27] MEDS: SYNTHROID 50 mcg TAB PO SCH (08:30)
[2018-02-27] MEDS: LOPRESSOR TAB 25 MG PO SCH (08:31)
[2018-02-27] MEDS: PROTONIX INJ 40 MG VIAL IVP SCH (09:02)
[2018-02-27 12:04] VITALS: BP 143/67
== END 2018-02-27 11:55 | disposition home or self-care (01) | DRG 390 ==
LOC: ER 05:07 → MED/SURG 09:49
PROVIDERS: ADMIT Internal Medicine; ATTEND Internal Medicine
DX: R51 Headache; K44.9 Diaphragmatic hernia without obstruction or gangrene; E03.8 Other specified hypothyroidism; K82.8 Other specified diseases of gallbladder; K56.699 Other intestinal obstruction unspecified as to partial versus complete obstruction; I48.91 Unspecified atrial fibrillation; I10 Essential (primary) hypertension; E78.2 Mixed hyperlipidemia; K81.1 Chronic cholecystitis; R94.31 Abnormal electrocardiogram [ECG] [EKG]; R10.13 Epigastric pain; K21.9 Gastro-esophageal reflux disease without esophagitis; R10.11 Right upper quadrant pain; K76.0 Fatty (change of) liver, not elsewhere classified; R11.2 Nausea with vomiting, unspecified
CPT/HCPCS: 36415; 43753; 74000; 74018; 74176; 76705; 78227; 80053; 81001; 82150; 82270; 83605; 83630; 83690; 85025; 87045; 87427; 87449; 87493; 87899; 88304; 93005; 93010; 96365; 96367; 96374; 96375; 99283; 99284; A4216; A4222; C9113; S0028; J0330; J0690; J1170; J1885; J2175; J2250; J2270; J2405; J2550; J2704; J2710; J3010; J3490; J7030

== ENCOUNTER 2018-10-12 12:08 | Observation (INO) ==
[2018-10-12] MEDS ORDERED: NITROSTAT ONE (12:26)
[2018-10-12] MEDS ORDERED: ASPIRIN 81 MG CHEWTAB ONE (12:28)
[2018-10-12] MEDS ORDERED: ASPIRIN 81 MG CHEWTAB PO ONE (12:28)
[2018-10-12] MEDS: NITROSTAT SL PRN ×2 (12:29→12:35)
[2018-10-12 12:36] LABS: BASOPHILS # (AUTO) 0.1 X10^3/uL (0.0-0.1); BASOPHILS % (AUTO) 0.7 % (0.2-1.0); EOSINOPHILS # (AUTO) 0.3 x10^3/uL (0.0-0.2); EOSINOPHILS % (AUTO) 2.8 % (0.9-2.9); HEMATOCRIT 40.2 % (36.0-47.0); HEMOGLOBIN 13.6 g/dL (12.0-16.0); LYMPHOCYTES # (AUTO) 2.9 X10^3/uL (1.3-2.9); LYMPHOCYTES % (AUTO) 32.7 % (21.0-51.0); MEAN CORPUSCULAR HEMOGLOBIN 30.7 pg (27.0-34.0); MEAN CORPUSCULAR HGB CONC 33.9 g/dL (33.0-35.0); MEAN CORPUSCULAR VOLUME 90.4 fL (80.0-100.0); MEAN PLATELET VOLUME 7.1 fL (7.4-11.0); MONOCYTES # (AUTO) 0.5 x10^3/uL (0.3-0.8); MONOCYTES % (AUTO) 5.5 % (0.0-13.0); NEUTROPHILS # (AUTO) 5.2 x10^3/uL (2.2-4.8); NEUTROPHILS % (AUTO) 58.3 % (42.0-75.0); PLATELET COUNT 335 X10^3/uL (150.0-450.0); RED BLOOD COUNT 4.45 X10^6/uL (3.5-5.4); RED CELL DISTRIBUTION WIDTH 14.5 % (11.6-16.5); WHITE BLOOD COUNT 8.9 X10^3/uL (3.6-10.0)
--- NOTE | 2018-10-12 12:36 | DR.CP ---
HPI Time Seen Time Seen by Provider: 10/12/18 12:23 PCP Primary Care Physician: hector HPI Comment HPI Comment: Ms. Pimentel is a 63 yo female who presents for chest pain. Was in muslim today and started having chest pain. Sharp pain from the back to the center of the chest. Nitro tablets did help. She has history of afib and cardiac history. She states that she is still having some pain and it is radiating to the jaw. She has had this pain when she Complaint Chief Complaint:: pt stated she was sitting in muslim this morning and started having chest pain. went last week dr gary with [facility] and was cleared for 6 mnths check up. started 2.5 hours ago Self Treatment fo Chief Complaint: took 1 nitro and it has help the pain Source History Provided: Patient Mode of Arrival Mode of Arrival: Ambulatory Timing Onset of Chief Complaint: 10/12/18 PMH PMH Past Medical History: Yes Past Medical History: Angina, Dyslipidemia, GERD, Hypertension and Hypothyroidism Past Surgical History: Yes Family History History of Family Medical Conditions: No Family Medical History: Coronary Artery Disease Social History Does patient currently use any type of tobacco product: No Have you used tobacco products in the last 12 months: No Type of Tobacco Use: None Does any household member use tobacco: No Alcohol Use: None Do you use any recreational Drugs:: No Lives With: Family Lives Where: Home infectious screening In the last 2 months have you had wt loss of >10#?: NO Have you had fever, night sweats or hemotysis?: No Have you traveled outside the country in the last 6 months?: No Isolation: Standard ROS Review of Systems Constitutional: Fatigue Eyes: No Symptoms Reported ENTM: No Symptoms Reported Respiratoy: No Symptoms Reported Cardiovascular: Chest Pain and Palpitations Gastrointestinal/Abdominal: No Symptoms Reported Genitourinary: No Symptoms Reported Neurological: No Symptoms Reported Musculoskeletal: No Symptoms Reported Integumentary: No Symptoms Reported Hematologic/Lymphatic: No Symptoms Reported Endocrine: No Symptoms Reported Psychiatric: No Symptoms Reported All Other Systems: Reviewed and Negative PE Vitals Vitals: Temperature 97.6 F Pulse Rate [Apical] 65 Pulse Rate 65 Respiratory Rate 20 Blood Pressure [Left Arm] 146/69 Blood Pressure [Right Arm] 143/67 Blood Pressure 154/71 O2 Sat by Pulse Oximetry 100 General Limitations: No Limitations General Appearance: Anxious and In Distress Head Head Exam: Normal Inspection and Atraumatic Eyes Eye exam: Normal Appearance, PERRL and EOMI ENT ENT Exam: Normal Exam and Normal Oropharynx Chest Chest Inspection: Normal Inspection Respiratory Respiratory Exam: Normal Lung Sounds Bilat Respiratory Exam: Bilateral: Clear to Auscultation Cardiovascular Cardiovascular Exam: Regular Rate and Normal Rhythm Pulse: Normal and Radial Edema: Normal Abdominal Exam Abdominal Exam: Normal Inspection, Normal Bowel Sounds and Soft Extremities Extremities Exam: Normal Inspection and Full ROM Neurologic Neurological Exam: Alert, Oriented X3 and CN II-XII Intact Psychiatric Psychiatric Exam: Normal Affect and Normal Mood Skin Skin Exam: Warm, Dry and Intact MDM Additional Information Additional Information Obtained From: Old Records, Family, Research Biostatistician and PCP Differential Diagnosis Differential Diagnosis: Angina, Chest Wall Pain and Myocardial Infarction COURSE Treatment Treatment: IVFs and ACS work up Reevaluation 1st: Improved 2nd: Improved Consultation Consultation Comments: Admitted to hospitalist team Education/Counseling Education/Counseling: Patient, Education and Counseling Educated On: Treatment, Diagnosis, Prognosis and Needs for Follow Up ROR Labs Reviewed Laboratory Results Reviewed?: Yes Result Diagrams: 10/13/18 04:57 10/13/18 04:57 Laboratory: WBC 7.0 X10^3/uL (3.6-10.0) 10/13/18 04:57 RBC 4.34 X10^6/uL (3.5-5.4) 10/13/18 04:57 Hgb 13.2 g/dL (12.0-16.0) 10/13/18 04:57 Hct 39.4 % (36.0-47.0) 10/13/18 04:57 MCV 90.8 fL (80.0-100.0) 10/13/18 04:57 MCH 30.3 pg (27.0-34.0) 10/13/18 04:57 MCHC 33.4 g/dL (33.0-35.0) 10/13/18 04:57 RDW 14.2 % (11.6-16.5) 10/13/18 04:57 Plt Count 252 X10^3/uL (150.0-450.0) 10/13/18 04:57 MPV 7.7 fL (7.4-11.0) 10/13/18 04:57 Neut % (Auto) 60.8 % (42.0-75.0) 10/13/18 04:57 Lymph % (Auto) 30.3 % (21.0-51.0) 10/13/18 04:57 [place] % (Auto) 5.7 % (0.0-13.0) 10/13/18 04:57 Eos % (Auto) 2.7 % (0.9-2.9) 10/13/18 04:57 Baso % (Auto) 0.5 % (0.2-1.0) 10/13/18 04:57 Neut # (Auto) 4.3 x10^3/uL (2.2-4.8) 10/13/18 04:57 Lymph # (Auto) 2.1 X10^3/uL (1.3-2.9) 10/13/18 04:57 [place] # (Auto) 0.4 x10^3/uL (0.3-0.8) 10/13/18 04:57 Eos # (Auto) 0.2 x10^3/uL (0.0-0.2) 10/13/18 04:57 Baso # (Auto) 0.0 X10^3/uL (0.0-0.1) 10/13/18 04:57 Absolute Nucleated RBC 0.0 /100WBC 10/13/18 04:57 INR Target Range - 10/12/18 12:25 INR 1.00 (0.8-1.3) 10/12/18 12:25 APTT 25.4 SECONDS (22.9-36.5) 10/12/18 12:25 PTT Comment - 10/12/18 12:25 D-Dimer 171 ng/mL (0-400) 10/12/18 12:19 Sodium 144 mmol/L (136-145) 10/13/18 04:57 Corrected Sodium 144 mmol/L (136-145) 10/13/18 04:57 Potassium 3.4 mmol/L (3.5-5.1) L 10/13/18 04:57 Chloride 109 mmol/L (98-107) H 10/13/18 04:57 Carbon Dioxide 27.0 mmol/L (21-32) 10/13/18 04:57 BUN 11 mg/dL (7-18) 10/13/18 04:57 Creatinine 0.74 mg/dL (0.55-1.02) 10/13/18 04:57 Est GFR (MDRD) Af Amer > 60 (>60) 10/13/18 04:57 Est GFR (MDRD) Non-Af > 60 (>60) 10/13/18 04:57 Glucose 113 mg/dL (65-99) H 10/13/18 04:57 Calcium 7.8 mg/dL (8.5-10.1) L 10/13/18 04:57 Corrected Calcium 8.6 mg/dL (8.5-10.1) 10/13/18 04:57 Magnesium 2.1 mg/dL (1.7-2.9) 10/13/18 04:57 Total Bilirubin 0.30 mg/dL (0.2-1.0) 10/13/18 04:57 AST 21 Units/L (15-37) 10/13/18 04:57 ALT 14 Units/L (12-78) 10/13/18 04:57 Alkaline Phosphatase 76 Units/L (46-116) 10/13/18 04:57 Creatine Kinase 79 Units/L (26-192) 10/13/18 04:57 CK-MB (CK-2) < 1.0 ng/mL (0-4.0) 10/13/18 04:57 CK/CKMB % Calc 1.3 % (<4) 10/13/18 04:57 Troponin I < 0.02 ng/mL (0-1.5) 10/13/18 04:57 Total Protein 6.3 g/dL (6.4-8.2) L 10/13/18 04:57 Albumin 3.0 g/dL (3.4-5.0) L 10/13/18 04:57 Globulin 3.3 g/dL (2.5-4.5) 10/13/18 04:57 Albumin/Globulin Ratio 0.9 Ratio (1.1-2.1) L 10/13/18 04:57 Triglycerides 82 mg/dL (0-150) 10/13/18 04:57 Cholesterol 123 mg/dL (0-200) 10/13/18 04:57 LDL Cholesterol, Calc 67 mg/dL (0-100) 10/13/18 04:57 HDL Cholesterol 40 mg/dL (40-60) 10/13/18 04:57 Cholesterol/HDL Ratio 3.1 (0.0-5.0) 10/13/18 04:57 Free T4 0.93 ng/dL (0.76-1.46) 10/13/18 04:57 TSH 3rd Generation 4.392 uIU/mL (0.358-3.74) H 10/13/18 04:57 EKG [place]: Normal Rhythm: NSR Hypertrophy: LAE ST: Ant (slight depression ) Diagnosis Discharge Problem: Chest pain Narrative Support Text: Time was spent educating and discussing care plan with patient. All diagnostic imaging, lab values, consult input was share and ex plained to patient. Time was spent answering all patient question. The patient agree and stated understanding of care plan.
[2018-10-12 12:56] LABS: BLOOD UREA NITROGEN 15 mg/dL (7-18); CALCIUM 8.3 mg/dL (8.5-10.1); CHLORIDE 106 mmol/L (98-107); COR NA(FOR HYPERGLY) 144 mmol/L (136-145); CREATININE 0.87 mg/dL (0.55-1.02); SODIUM 143 mmol/L (136-145); TROPONIN I < 0.02 ng/mL (0-1.5); eGFR NON BLACK RACES > 60 (>60)
[2018-10-12 13:00] LABS: ALANINE AMINOTRANSFERASE 16 Units/L (12-78); ALBUMIN 3.5 g/dL (3.4-5.0); ALKALINE PHOSPHATASE 98 Units/L (46-116); ASPARTATE AMINO TRANSFERASE 23 Units/L (15-37); CREATINE KINASE 102 Units/L (26-192); CREATINE KINASE MB < 1.0 ng/mL (0-4.0); TOTAL PROTEIN 7.2 g/dL (6.4-8.2)
[2018-10-12] MEDS ORDERED: NS 1000 ML 1,000 ML ONE (15:49)
[2018-10-12] MEDS: NS 1000 ML 1,000 ML IV SCH ×2 (15:56→15:57)
[2018-10-12 16:50] VITALS: BMI 34.4
--- NOTE | 2018-10-12 17:13 | RAD ---
History: Chest pain Technique: AP chest Comparison: 03/17/2016 Findings: Lungs are clear without focal airspace opacities. There are no large pleural effusions. The hilar and cardiomediastinal silhouette appear normal. Impression: 1. No radiographic evidence of an acute cardiopulmonary process. Reported By:
[2018-10-12 19:03] LABS: CREATINE KINASE 99 Units/L (26-192); CREATINE KINASE MB < 1.0 ng/mL (0-4.0); TROPONIN I < 0.02 ng/mL (0-1.5)
[2018-10-13 01:09] LABS: CKMB % 1.1 % (<4); CREATINE KINASE 89 Units/L (26-192); CREATINE KINASE MB < 1.0 ng/mL (0-4.0); TROPONIN I < 0.02 ng/mL (0-1.5)
[2018-10-13] MEDS: NS 1000 ML 1,000 ML IV SCH ×2 (03:13→18:06)
[2018-10-13 05:26] LABS: BASOPHILS % (AUTO) 0.5 % (0.2-1.0); EOSINOPHILS # (AUTO) 0.2 x10^3/uL (0.0-0.2); EOSINOPHILS % (AUTO) 2.7 % (0.9-2.9); HEMATOCRIT 39.4 % (36.0-47.0); HEMOGLOBIN 13.2 g/dL (12.0-16.0); LYMPHOCYTES # (AUTO) 2.1 X10^3/uL (1.3-2.9); LYMPHOCYTES % (AUTO) 30.3 % (21.0-51.0); MEAN CORPUSCULAR HEMOGLOBIN 30.3 pg (27.0-34.0); MEAN CORPUSCULAR HGB CONC 33.4 g/dL (33.0-35.0); MEAN CORPUSCULAR VOLUME 90.8 fL (80.0-100.0); MEAN PLATELET VOLUME 7.7 fL (7.4-11.0); MONOCYTES # (AUTO) 0.4 x10^3/uL (0.3-0.8); MONOCYTES % (AUTO) 5.7 % (0.0-13.0); NEUTROPHILS # (AUTO) 4.3 x10^3/uL (2.2-4.8); NEUTROPHILS % (AUTO) 60.8 % (42.0-75.0); PLATELET COUNT 252 X10^3/uL (150.0-450.0); RED BLOOD COUNT 4.34 X10^6/uL (3.5-5.4); RED CELL DISTRIBUTION WIDTH 14.2 % (11.6-16.5)
[2018-10-13 05:56] LABS: ALANINE AMINOTRANSFERASE 14 Units/L (12-78); ALKALINE PHOSPHATASE 76 Units/L (46-116); ASPARTATE AMINO TRANSFERASE 21 Units/L (15-37); BLOOD UREA NITROGEN 11 mg/dL (7-18); CALCIUM 7.8 mg/dL (8.5-10.1); CHLORIDE 109 mmol/L (98-107); CHOL/HDL RATIO 3.1 (0.0-5.0); CHOLESTEROL 123 mg/dL (0-200); CKMB % 1.3 % (<4); COR CA(FOR HYPOALB) 8.6 mg/dL (8.5-10.1); COR NA(FOR HYPERGLY) 144 mmol/L (136-145); CREATINE KINASE 79 Units/L (26-192); CREATINE KINASE MB < 1.0 ng/mL (0-4.0); CREATININE 0.74 mg/dL (0.55-1.02); HDL CHOLESTEROL 40 mg/dL (40-60); SODIUM 144 mmol/L (136-145); TOTAL PROTEIN 6.3 g/dL (6.4-8.2); TRIGLYCERIDES 82 mg/dL (0-150); TROPONIN I < 0.02 ng/mL (0-1.5); eGFR NON BLACK RACES > 60 (>60)
[2018-10-13] MEDS ORDERED: KLOR-CON PO PRN (06:01)
[2018-10-13] MEDS ORDERED: POTASSIUM CHL 60 MEQ/NS 0.45% 500 ML IV PRN (06:01)
[2018-10-13] MEDS ORDERED: POTASSIUM CHL 40 MEQ/NS 0.45% 500 ML IV PRN (06:01)
[2018-10-13] MEDS ORDERED: MICRO K EXTEN CAP 10 MEQ PO PRN (06:01)
[2018-10-13] MEDS ORDERED: MAGNESIUM SULFATE 1 GRAM/100 mL PREMIX 1 GM/100 ML BAG IV PRN (06:01)
[2018-10-13] MEDS ORDERED: POTASSIUM CHLORIDE LIQ 20 MEQ UDC PO PRN (06:01)
[2018-10-13] MEDS ORDERED: K-RIDER 10 MEQ/NS 100 ML 10 MEQ/100 ML BAG IV PRN (06:01)
--- NOTE | 2018-10-13 07:07 | RAD ---
HISTORY: Chest pain Study: Chest AP portable Comparison: 10/12/2018 Findings: The heart is upper limits normal in size. No congestive heart failure is noted. No acute alveolar infiltrates or pleural effusions are identified. The bony thorax is unremarkable. IMPRESSION: No significant abnormality identified Reported By:
[2018-10-13 09:10] LABS: FREE T4 (FREE THYROXINE) 0.93 ng/dL (0.76-1.46); TSH (3RD GENERATION) 4.392 uIU/mL (0.358-3.74)
[2018-10-13] MEDS: K-DUR TAB 20 MEQ PO PRN (09:37)
[2018-10-13] MEDS ORDERED: PHARMACY CONSULT - DOSE _____ XX SCH (12:00)
[2018-10-13] MEDS ORDERED: NITROSTAT SL PRN (12:10)
--- NOTE | 2018-10-13 12:24 | CT ---
CT CHEST WITH IV CONTRAST HISTORY: Chest pains and history of NH Comparison: None Technique: Multiple axial images of the chest were obtained from the thoracic inlet to the upper abdomen after the administration of IV contrast.Dose reduction techniques including Automated Exposure Control (AEC) and adjustment of mA and kV were utlized. Findings: The heart is normal in size. No pericardial effusion. No suspicious mediastinal or axillary lymph nodes. Although not optimized to detect pulmonary embolism, no large central pulmonary emboli are seen. Large hiatal hernia. No focal consolidations, pleural effusions or pneumothorax. Airways are patent. No suspicious pulmonary nodules or masses. Limited images of the upper abdomen are unremarkable. No aggressive osseous lesions. IMPRESSION: 1. Unremarkable CT of the chest. Reported By:
[2018-10-13] MEDS: TAMBOCOR PO SCH ×2 (13:02→23:24)
[2018-10-13] MEDS: LOPRESSOR TAB 25 MG PO SCH ×2 (13:03→22:26)
[2018-10-13] MEDS: PriLOSEC PO SCH (13:03)
[2018-10-13] MEDS: SYNTHROID 50 mcg TAB PO SCH (13:03)
[2018-10-13] MEDS: LOVENOX INJ 40 MG SYR SC SCH (13:30)
--- NOTE | 2018-10-13 13:43 | DR.H&P ---
H&P - History & Physical for Day of: H&P Date: 10/12/18 - Chief Complaint Chief Complaint: CHEST PAIN - History of Present Illness History of Present Illness: 63 WF ER ADMISSION AFTER PRESENTING WITH CO chest pain. Was in cheondoism today and started having chest pain. Sharp pain from the back to the center of the chest. Nitro tablets did help. She has history of afib and cardiac history, last heart cath 3 years ago reporting no blockage. She states that she is still having some pain and it is radiating to the jaw. She has had this pain when she was in AFIB. pt ekg with NSR. pt states she does not feel like it is her heart. Pt admitted for serial ce and ekg. - Past Medical History Past Medical History: Angina, Hypertension, Dyslipidemia, Hypothyroidism, GERD Additional Medical History: cardiac dysrhythmias; undefined - presumed paroxysmal SVT - Past Surgical History Surgical History: Cholecystectomy, Ortho Surgery, Other - Family History Family Medical History: Coronary Artery Disease - Social History Does patient currently use any type of tobacco product: No Have you used tobacco products in the last 12 months: No Type of Tobacco Use: None Does any household member use tobacco: No Alcohol Use: None Drug Use: None - Medications Home Medications: cinnamon Allergy (Verified 10/12/18 12:12) codeine Allergy (Verified 10/12/18 12:12) - Review of Systems Constitutional: Weakness Eyes: No Symptoms Reported ENT: No Symptoms Reported Respiratory: No Symptoms Reported Cardiovascular: Chest Pain, Palpitations Gastrointestinal: Nausea, Other (gas) Genitourinary: No Symptoms Reported Musculoskeletal: Shoulder Pain Skin: No Symptoms Reported Neurological: No Symptoms Reported - Physical Exam Vital Signs: Temperature 98.2 F Pulse Rate [Apical] 66 Pulse Rate 65 Respiratory Rate 20 Blood Pressure [Left Arm] 147/77 Blood Pressure [Right Arm] 143/67 Blood Pressure 154/71 O2 Sat by Pulse Oximetry 99 Oriented: Normal Eyes: Normal Ear: Normal Nose: Normal Throat: Normal Respiratory: Clear Throughout Cardiovascular: Normal. negative: Edema : Normal Auscultation: Bowel Sounds: Normal Tenderness: Epigastric Skin: Normal Musculoskeletal: Left, Shoulder, Tender Psychiatric: Anxiety Affect: Anxious Speech Pattern: Clear, Appropriate - Assessment/Plan (1) Chest pain, rule out acute myocardial infarction Status: Acute Plan: admit, serial ce and ekg. bp control, verify home medication. gentle iv hydration, pain control. PPI therapy, cxr on admission (2) SOB (shortness of breath) Status: Acute (3) Hiatal hernia with GERD Status: Acute (4) Cardiac arrhythmia Status: Acute (5) Hypertension Status: Chronic (6) Hyperlipidemia Status: Chronic - Allergies Allergies/Adverse Reactions: Allergies Allergy/AdvReac Type Severity Reaction Status Date / Time cinnamon Allergy Verified 10/12/18 12:12 codeine Allergy Verified 10/12/18 12:12
--- NOTE | 2018-10-13 13:47 | PCM.PROG ---
Progress Note - Progress Note for Day of Date of Exam: 10/13/18 - Subjective Subjective: 63 WF ER ADMISSION WITH CHEST PAIN, PT HAD SERIAL CE AFTER ADMISSION WHICH WERE STABLE. PT CO PAIN UP TO THROAT AND EPIGASTRIC AREA, RADIATED TO MID BACK. PT HAD HER GALLBLADDER REMOVED LAST YEAR. ADDED IV PEPCID AND CARAFATE, CT CHEST WITH CONTRAST R/O PE - Past Medical Family Social History Past Med/Fam/Surg Hx: No changes since H&P Allergies: Allergies cinnamon Allergy (Verified 10/12/18 12:12) codeine Allergy (Verified 10/12/18 12:12) - Review of Systems ROS: No change since H&P - Vital Signs and I&O's Vital Signs: Temperature 98.2 F Pulse Rate [Apical] 66 Pulse Rate 65 Respiratory Rate 20 Blood Pressure [Left Arm] 147/77 Blood Pressure [Right Arm] 143/67 Blood Pressure 154/71 O2 Sat by Pulse Oximetry 99 Intake and Output: Intake & Output 10/11/18 10/12/18 10/13/18 10/14/18 11:59 11:59 11:59 11:59 Intake Total 1640 / 1640 Balance 1640 / 1640 - Physical Exam Oriented: Normal Eyes: Normal Ear: Normal Nose: Normal Throat: Normal Respiratory: Diminished Cardiovascular: Normal. negative: Edema : Normal Auscultation: Bowel Sounds: Normal Tenderness: Epigastric Skin: Normal Musculoskeletal: Left, Shoulder, Tender Psychiatric: Anxiety Affect: Anxious Speech Pattern: Clear, Appropriate - Laboratory and Diagnostics Result Diagrams: 10/13/18 04:57 10/13/18 04:57 Labs: Laboratory WBC 7.0 X10^3/uL (3.6-10.0) 10/13/18 04:57 RBC 4.34 X10^6/uL (3.5-5.4) 10/13/18 04:57 Hgb 13.2 g/dL (12.0-16.0) 10/13/18 04:57 Hct 39.4 % (36.0-47.0) 10/13/18 04:57 MCV 90.8 fL (80.0-100.0) 10/13/18 04:57 MCH 30.3 pg (27.0-34.0) 10/13/18 04:57 MCHC 33.4 g/dL (33.0-35.0) 10/13/18 04:57 RDW 14.2 % (11.6-16.5) 10/13/18 04:57 Plt Count 252 X10^3/uL (150.0-450.0) 10/13/18 04:57 MPV 7.7 fL (7.4-11.0) 10/13/18 04:57 Neut % (Auto) 60.8 % (42.0-75.0) 10/13/18 04:57 Lymph % (Auto) 30.3 % (21.0-51.0) 10/13/18 04:57 [place] % (Auto) 5.7 % (0.0-13.0) 10/13/18 04:57 Eos % (Auto) 2.7 % (0.9-2.9) 10/13/18 04:57 Baso % (Auto) 0.5 % (0.2-1.0) 10/13/18 04:57 Neut # (Auto) 4.3 x10^3/uL (2.2-4.8) 10/13/18 04:57 Lymph # (Auto) 2.1 X10^3/uL (1.3-2.9) 10/13/18 04:57 [place] # (Auto) 0.4 x10^3/uL (0.3-0.8) 10/13/18 04:57 Eos # (Auto) 0.2 x10^3/uL (0.0-0.2) 10/13/18 04:57 Baso # (Auto) 0.0 X10^3/uL (0.0-0.1) 10/13/18 04:57 Absolute Nucleated RBC 0.0 /100WBC 10/13/18 04:57 INR Target Range - 10/12/18 12:25 INR 1.00 (0.8-1.3) 10/12/18 12:25 APTT 25.4 SECONDS (22.9-36.5) 10/12/18 12:25 PTT Comment - 10/12/18 12:25 D-Dimer 171 ng/mL (0-400) 10/12/18 12:19 Sodium 144 mmol/L (136-145) 10/13/18 04:57 Corrected Sodium 144 mmol/L (136-145) 10/13/18 04:57 Potassium 3.4 mmol/L (3.5-5.1) L 10/13/18 04:57 Chloride 109 mmol/L (98-107) H 10/13/18 04:57 Carbon Dioxide 27.0 mmol/L (21-32) 10/13/18 04:57 BUN 11 mg/dL (7-18) 10/13/18 04:57 Creatinine 0.74 mg/dL (0.55-1.02) 10/13/18 04:57 Est GFR (MDRD) Af Amer > 60 (>60) 10/13/18 04:57 Est GFR (MDRD) Non-Af > 60 (>60) 10/13/18 04:57 Glucose 113 mg/dL (65-99) H 10/13/18 04:57 Calcium 7.8 mg/dL (8.5-10.1) L 10/13/18 04:57 Corrected Calcium 8.6 mg/dL (8.5-10.1) 10/13/18 04:57 Magnesium 2.1 mg/dL (1.7-2.9) 10/13/18 04:57 Total Bilirubin 0.30 mg/dL (0.2-1.0) 10/13/18 04:57 AST 21 Units/L (15-37) 10/13/18 04:57 ALT 14 Units/L (12-78) 10/13/18 04:57 Alkaline Phosphatase 76 Units/L (46-116) 10/13/18 04:57 Creatine Kinase 79 Units/L (26-192) 10/13/18 04:57 CK-MB (CK-2) < 1.0 ng/mL (0-4.0) 10/13/18 04:57 CK/CKMB % Calc 1.3 % (<4) 10/13/18 04:57 Troponin I < 0.02 ng/mL (0-1.5) 10/13/18 04:57 Total Protein 6.3 g/dL (6.4-8.2) L 10/13/18 04:57 Albumin 3.0 g/dL (3.4-5.0) L 10/13/18 04:57 Globulin 3.3 g/dL (2.5-4.5) 10/13/18 04:57 Albumin/Globulin Ratio 0.9 Ratio (1.1-2.1) L 10/13/18 04:57 Triglycerides 82 mg/dL (0-150) 10/13/18 04:57 Cholesterol 123 mg/dL (0-200) 10/13/18 04:57 LDL Cholesterol, Calc 67 mg/dL (0-100) 10/13/18 04:57 HDL Cholesterol 40 mg/dL (40-60) 10/13/18 04:57 Cholesterol/HDL Ratio 3.1 (0.0-5.0) 10/13/18 04:57 Free T4 0.93 ng/dL (0.76-1.46) 10/13/18 04:57 TSH 3rd Generation 4.392 uIU/mL (0.358-3.74) H 10/13/18 04:57 - Plan (1) Chest pain, rule out acute myocardial infarction Status: Acute Plan: serial ce and ekg. bp control, verify home medication. gentle iv hydration, pain control. PPI therapy, cxr on admission (2) SOB (shortness of breath) Status: Acute Plan: CT CHEST WITH CONTRAST, CARDIAC MONITORING (3) Hiatal hernia with GERD Status: Acute (4) Cardiac arrhythmia Status: Acute (5) Hypertension Status: Chronic (6) Hyperlipidemia Status: Chronic
[2018-10-13] MEDS: PEPCID 20 MG IV PREMIX* 20 MG/50 ML BAG IV SCH ×2 (15:08→23:24)
[2018-10-13] MEDS: CARAFATE ORAL SUSP PO SCH ×2 (18:06→22:38)
[2018-10-13] MEDS ORDERED: ZOCOR TAB 20 MG PO SCH (21:00)
[2018-10-14 05:24] LABS: BASOPHILS % (AUTO) 0.6 % (0.2-1.0); EOSINOPHILS # (AUTO) 0.2 x10^3/uL (0.0-0.2); EOSINOPHILS % (AUTO) 2.9 % (0.9-2.9); HEMATOCRIT 39.5 % (36.0-47.0); HEMOGLOBIN 13.5 g/dL (12.0-16.0); LYMPHOCYTES # (AUTO) 2.4 X10^3/uL (1.3-2.9); MEAN CORPUSCULAR HEMOGLOBIN 31.1 pg (27.0-34.0); MEAN CORPUSCULAR HGB CONC 34.1 g/dL (33.0-35.0); MEAN CORPUSCULAR VOLUME 91.4 fL (80.0-100.0); MEAN PLATELET VOLUME 7.5 fL (7.4-11.0); MONOCYTES # (AUTO) 0.4 x10^3/uL (0.3-0.8); MONOCYTES % (AUTO) 6.2 % (0.0-13.0); NEUTROPHILS # (AUTO) 3.7 x10^3/uL (2.2-4.8); NEUTROPHILS % (AUTO) 55.3 % (42.0-75.0); PLATELET COUNT 272 X10^3/uL (150.0-450.0); RED BLOOD COUNT 4.33 X10^6/uL (3.5-5.4); RED CELL DISTRIBUTION WIDTH 14.3 % (11.6-16.5); WHITE BLOOD COUNT 6.7 X10^3/uL (3.6-10.0)
[2018-10-14 05:33] LABS: ALANINE AMINOTRANSFERASE 12 Units/L (12-78); ALBUMIN 3.1 g/dL (3.4-5.0); ALKALINE PHOSPHATASE 76 Units/L (46-116); ASPARTATE AMINO TRANSFERASE 19 Units/L (15-37); BLOOD UREA NITROGEN 11 mg/dL (7-18); CALCIUM 8.1 mg/dL (8.5-10.1); CARBON DIOXIDE 25.9 mmol/L (21-32); CHLORIDE 108 mmol/L (98-107); COR CA(FOR HYPOALB) 8.8 mg/dL (8.5-10.1); CREATININE 0.87 mg/dL (0.55-1.02); SODIUM 142 mmol/L (136-145); TOTAL PROTEIN 6.5 g/dL (6.4-8.2); eGFR NON BLACK RACES > 60 (>60)
[2018-10-14] MEDS: CARAFATE ORAL SUSP PO SCH (05:34)
[2018-10-14] MEDS: K-DUR TAB 20 MEQ PO PRN (05:50)
[2018-10-14] MEDS ORDERED: TYLENOL 325 MG TAB PO PRN (07:28)
[2018-10-14] MEDS ORDERED: TYLENOL 325 MG TAB PO ONE (07:31)
[2018-10-14 08:26] VITALS: BP 124/66
[2018-10-14] MEDS: PEPCID 20 MG IV PREMIX* 20 MG/50 ML BAG IV SCH (08:32)
[2018-10-14] MEDS: LOVENOX INJ 40 MG SYR SC SCH (08:32)
[2018-10-14] MEDS: TAMBOCOR PO SCH (08:33)
[2018-10-14] MEDS: PriLOSEC PO SCH (08:33)
[2018-10-14] MEDS: LOPRESSOR TAB 25 MG PO SCH (08:33)
[2018-10-14] MEDS: SYNTHROID 50 mcg TAB PO SCH (08:33)
[2018-10-14] MEDS: NS 1000 ML 1,000 ML IV SCH (08:33)
== END 2018-10-14 11:00 | disposition home or self-care (01) ==
LOC: MED/SURG 12:11 → ER 12:11 → MED/SURG 15:48
PROVIDERS: ADMIT Internal Medicine; ATTEND Internal Medicine
DX: M19.90 Unspecified osteoarthritis, unspecified site; K44.9 Diaphragmatic hernia without obstruction or gangrene; I10 Essential (primary) hypertension; R07.89 Other chest pain; I49.9 Cardiac arrhythmia, unspecified; E89.0 Postprocedural hypothyroidism; R94.31 Abnormal electrocardiogram [ECG] [EKG]; R06.02 Shortness of breath; K21.9 Gastro-esophageal reflux disease without esophagitis; I48.91 Unspecified atrial fibrillation; E78.2 Mixed hyperlipidemia
CPT/HCPCS: 36415; 71010; 71045; 71260; 80053; 80061; 82550; 82553; 83735; 84439; 84443; 84484; 85025; 85378; 85610; 85730; 93005; 94760; 96365; 96367; 96372; 96374; 99284; A4222; S0028; G0378; J1650; J3490; J7030